=== PATIENT | male | born 1945 | race Caucasian/White ===

== ENCOUNTER 2019-01-07 14:41 | Inpatient (IN) | payer OTHER, MEDICARE ==
[~2019-01-07] VITALS: Ht 182.9 cm; Wt 104.3 kg
[2019-01-07] MEDS ORDERED: methylPREDNISolone SOD SUCC 125 MG/2 ML VL IV ONE (15:15)
[2019-01-07] MEDS ORDERED: diphenhdrAMINE HCL 50 MG/1 ML VL IV ONE (15:15)
[2019-01-07 16:04] LABS: Hematocrit 44.6 % (41.0-53.0); Hemoglobin 14.5 g/dL (13.5-17.5); Mean Corpuscular Hemoglobin 27.6 pg (28.0-32.0); Mean Corpuscular Hgb Conc. 32.4 g/dL (32.0-36.0); Platelet Count (auto) 108 10^3/uL (140-450); Red Blood Cells 5.25 10^6/uL (4.5-5.90); Red Cell Distribution Width 16.3 % (11.8-14.3); White Blood Cell 12.8 10^3/uL (4.4-10.8)
[2019-01-07 16:14] LABS: Band Neutrophils % (manual) 0; Basophils % (manual) 0 (0.0-2.0); Blast Cells 0; Eosinophils % (manual) 0 (0-7); Metamyelocytes % 0; Myelocytes % 0; Promyelocytes % 0; Reactive Lymphocytes 0
[2019-01-07 16:21] LABS: Albumin 3.9 g/dL (3.4-5.0); BUN/Creatinine Ratio 22.1; Calcium 9.4 mg/dL (8.5-10.1)
[2019-01-07 16:26] LABS: Bilirubin, Total 0.6 mg/dL (0.2-1.0); Total Protein 7.7 g/dL (6.4-8.2)
[2019-01-07 16:57] LABS: Lymphocytes % (manual) 4 (10.0-50.0); Monocytes % (manual) 6 (0-12)
[2019-01-07] MEDS ORDERED: MORPHINE SULF INJ 2 MG/ML SYRINGE 1ML IV PRN (19:00)
[2019-01-07] MEDS ORDERED: LACTULOSE 20Gm/30ML SOLN PO PRN (19:00)
[2019-01-07] MEDS ORDERED: ALBUTEROL SULF 2.5 MG/0.5ML(0.5%) NEB SOLN NEB PRN (19:00)
[2019-01-07] MEDS ORDERED: PROMETHAZINE HCL 25 MG/ML 1ML IV PRN (19:00)
[2019-01-07] MEDS ORDERED: NITROGLYCERIN 0.4 MG SL TAB SL PRN (19:00)
[2019-01-07] MEDS ORDERED: TEMAZEPAM 15 MG CAP PO PRN (19:00)
[2019-01-07] MEDS ORDERED: traMADol HCL 50 MG TAB PO PRN (19:00)
--- NOTE | 2019-01-07 20:20 | NUR ---
Telemetry admit from ER NIKKI MARKS admitted to Telemetry unit after SBAR received. Patient oriented to Amos Vera, primary RN, unit, room, bed, and unit policies regarding patient care and visiting hours. Patient now on continuous telemetry monitoring, tele box #24 and telemetry reading on arrival to unit is SR 90s. Patient placed on bedside oxygen, weighed by bedscale and encouraged to call if they need something. All questions and concerns addressed, patient verbalized understanding.
[2019-01-07 20:22] VITALS: BP 149/90
[2019-01-07 20:30] VITALS: BP 149/98
[2019-01-07 21:12] VITALS: BP 149/98
[2019-01-07] MEDS ORDERED: CARVEDILOL 3.125 MG TAB PO SCH (22:00)
[2019-01-07] MEDS: SODIUM CHLOR 0.9% PF (SALINE LOCK) 10ML VIAL/SYR IV SCH (22:00)
--- NOTE | 2019-01-07 22:50 | NUR ---
[employer] EMPLOY[employer] AGENCY MANAGER CALLS Call from [facility] monitor worker due to multiple episodes of bradycardia (30s and 40s). The patient states that he feels tired. Denies any previous history of bradycardia. supervisor blood Salazar has been notified. supervisor blood Salazar will discuss with hospitalist.
--- NOTE | 2019-01-07 23:25 | NUR ---
TRANSFER According to rubber tire and tubes supervisor Salazar, the patient will be transferred to ICU. Order for transfer has been placed by domestic housekeeper. ICU charge nurse is aware.
--- NOTE | 2019-01-07 23:30 | NUR ---
open report received from GORDON claros. assumed care of male pt, room air 95%, respirations equal and unlabored. iv to L ac, NSL. vs wnl. pt denies pain or sob at this time. pt admitted to icu for episodes of bradycardia, pt connected to temporary pacemaker at this time. pt educated on use of call light, call light within reach, pt verbalized understanding. bed in lowest position, wheels locked, 2 side rails up, hob30*, pt in full view of rn station, will continue to care for and monitor.
[2019-01-07 23:40] VITALS: BP 144/86
--- NOTE | 2019-01-07 23:50 | NUR ---
TRANSFER TO ICU Patient has been transferred the ICU bed #110. Bedside report was given to Comfort LEYVA.
[2019-01-08] VITALS (52 sets, daily range): BP systolic 90–179; BP diastolic 31–118
--- NOTE | 2019-01-08 01:00 | NUR ---
questions pt had questions regarding primary md, and poc. all questions and concerns addressed.
[2019-01-08] MEDS ORDERED: DOPamine 1600MCG/ML D5W 250 ML IV SCH (01:10)
[2019-01-08] MEDS: ALBUTEROL SULF 2.5 MG/0.5ML(0.5%) NEB SOLN NEB SCH ×5 (01:18→23:53)
[2019-01-08] MEDS ORDERED: GABA-339 PO (01:20)
[2019-01-08] MEDS ORDERED: NAPR500T31 PO (01:20)
[2019-01-08] MEDS ORDERED: FURO40TA4 PO (01:20)
[2019-01-08] MEDS ORDERED: TACR1CAP19 OR (01:20)
[2019-01-08] MEDS ORDERED: ENAL10TA PO (01:20)
[2019-01-08] MEDS ORDERED: ATOR40TA52 PO (01:20)
--- NOTE | 2019-01-08 01:30 | NUR ---
PAGED PAGEKianna AWAITING CALL BACK
--- NOTE | 2019-01-08 04:31 | NUR ---
hygiene pt refused hygeine at this time. said later on maybe after breakfast. canisters and tubing changed.
[2019-01-08] MEDS: SODIUM CHLOR 0.9% PF (SALINE LOCK) 10ML VIAL/SYR IV SCH ×3 (06:00→21:54)
[2019-01-08 06:14] LABS: Basophils # (auto) 0 uL; Basophils % (auto) 0.3 % (0.0-2.0); Eosinophils # (auto) 0 uL; Eosinophils % (auto) 0.2 % (0.0-7.0); Hemoglobin 14.8 g/dL (13.5-17.5); Lymphocytes # (auto) 0.4 uL; Lymphocytes % (auto) 4.1 % (10.0-50.0); Mean Corpuscular Hemoglobin 28.3 pg (28.0-32.0); Monocytes # (auto) 0.2 uL; Monocytes % (auto) 1.9 % (0.0-12.0); Neutrophils # (auto) 10.1 uL; Neutrophils % (auto) 93.5 % (37.0-80.0); Nucleated Red Blood Cells % 0.1 %; Platelet Count (auto) 154 10^3/uL (140-450); Red Blood Cells 5.23 10^6/uL (4.5-5.90); Red Cell Distribution Width 16.7 % (11.8-14.3); White Blood Cell 10.8 10^3/uL (4.4-10.8)
[2019-01-08 06:33] LABS: Albumin 3.5 g/dL (3.4-5.0); Calcium 8.6 mg/dL (8.5-10.1); Potassium 4.9 mmol/L (3.5-5.1)
[2019-01-08 06:35] LABS: BUN/Creatinine Ratio 24.4; Bilirubin, Total 0.4 mg/dL (0.2-1.0); Total Protein 7.7 g/dL (6.4-8.2)
--- NOTE | 2019-01-08 07:15 | NUR ---
CALLED BACK MD CALLED BACK UPDATED ON PT. ORDERS RECEIVED.
--- NOTE | 2019-01-08 07:33 | NUR ---
Dr. Bourgeois at bedside.
--- NOTE | 2019-01-08 07:46 | NUR ---
Assumed care of patient. Patient is AAOX4. Vital signs stable. No s/s of distress noted. Patient attached to monitor, safety measures in place. Ptient advised of POC and to call for assistance PRN. Patient verbalized understanding. Bed in lowest locked position, call light within reach, side rails up X2. Safety maintained, balwinder continue to monitor for changes Q1hr and PRN.
[2019-01-08 08:27] LABS: Urine Bacteria NONE SEEN /hpf (None Seen); Urine Blood TRACE /uL (Negative); Urine Hyaline Cast MANY /lpf (0 - 2); Urine Mucus FEW (None Seen); Urine Specific Gravity 1.026 (1.001-1.035); Urine WBC 1 /hpf (0 - 3)
[2019-01-08] MEDS ORDERED: LIDOCAINE 2%HCL (LOCAL ANESTH.) INJ 20ML MDV ONE (08:43)
[2019-01-08] MEDS ORDERED: IODIXANOL 320MG/ML 100ML BTL IV ONE ×2 (08:44→09:02)
[2019-01-08] MEDS ORDERED: HEPARIN SODIUM (PORCINE) 5000 UNITS/ML 1ML VIAL ONE (08:46)
[2019-01-08] MEDS ORDERED: VERAPAMIL 2.5MG/ML INJ 2ML VIAL IV ONE (08:46)
--- NOTE | 2019-01-08 08:48 | NUR ---
Patient transported to cath. lab.
[2019-01-08] MEDS ORDERED: MIDAZOLAM HCL 1MG/1ML-2 ML VIAL ONE ×2 (09:01→09:34)
[2019-01-08] MEDS ORDERED: fentaNYL CITRATE 100 MCG/2 ML VL ONE (09:01)
[2019-01-08] MEDS ORDERED: ANGIOMAX 250 MG VIAL IV ONE (09:02)
[2019-01-08] MEDS ORDERED: SODIUM CHL 0.9% 0 ML ONE (09:02)
[2019-01-08] MEDS ORDERED: methylPREDNISolone SOD SUCC 40 MG/ML VL IV SCH (10:00)
[2019-01-08] MEDS ORDERED: SODIUM CHLORIDE 0.9% 1,000 ML IV ONE (10:31)
--- NOTE | 2019-01-08 11:09 | NUR ---
Dr. Raya at bedside.
--- NOTE | 2019-01-08 11:45 | NUR ---
inorganic chemical technician at bedside.
--- NOTE | 2019-01-08 11:47 | NUR ---
Patient ashley Turner [facility] [phone]. Addendum: 01/08/19 at 1149 by Josselyn Wright RN RN WRONG PATIENT
--- NOTE | 2019-01-08 11:51 | NUR ---
Patient updated via telephone, after password was verified.
[2019-01-08] MEDS ORDERED: TACROLIMUS 1 MG CAP PO ONE (12:15)
[2019-01-08] MEDS ORDERED: EVEROLIMUS 1 MG PO SCH (12:30)
[2019-01-08] MEDS: FUROSEMIDE 40 MG/4 ML VIAL IV SCH (12:40)
[2019-01-08] MEDS: PANTOPRAZOLE 40 MG TAB PO SCH (12:41)
[2019-01-08] MEDS: NITROGLYCERIN 0.2MG/HR TOPICAL PATCH TD SCH (12:41)
[2019-01-08] MEDS: ASPirin 81 mg TAB PO SCH (12:41)
[2019-01-08] MEDS: ENOXAPARIN SOD 40 MG/0.4 ML SYRINGE SC SCH (12:41)
[2019-01-08] MEDS: POTASSIUM CHL 20 Meq TABLET PO SCH (12:41)
--- NOTE | 2019-01-08 13:10 | NUR ---
Lunch tray provided.
--- NOTE | 2019-01-08 16:00 | NUR ---
BP 90/54, Nitro patch removed.
--- NOTE | 2019-01-08 16:14 | NUR ---
Dr. Bourgeois, updated via telephone. No new orders received.
--- NOTE | 2019-01-08 19:00 | NUR ---
OPENING NOTE ASSUMED CARE OF PATIENT AT THIS TIME. REPORT RECEIVED FROM DAY SHIFT RN. POC REVIEWED. HEAD TO TOE ASSESSMENT COMPLETE, SEE INTERVENTION SPREADSHEET FOR COMPLETE DETAILS. RECEIVED PT ALERT AND ORIENTED X4. PT AMBULATORY. PT DENIES PAIN AT THIS TIME. IV SITE BENIGN. BED LOCKED AND IN LOWEST POSITION, SAFETY PRECAUTIONS IN PLACE. CALL LIGHT WITHIN REACH. WILL MONITOR PT CAREFULLY.
--- NOTE | 2019-01-08 20:15 | NUR ---
PT OOB TO USE BEDSIDE COMMODE. PT BACK TO BED WITH NO INCIDENT.
[2019-01-08] MEDS: ACETAMINOPHEN 500 MG TAB PO PRN (21:32)
--- NOTE | 2019-01-08 21:33 | NUR ---
PT COMPLAINING OF HEADACHE. TYLENOL GIVEN ORDERED. WILL ASSESS FOR EFFECTIVENESS.
[2019-01-08] MEDS: GABAPENTIN 300 MG CAP PO SCH (21:51)
[2019-01-08] MEDS: ATORVASTATIN 20 MG TAB PO SCH (21:52)
[2019-01-08] MEDS: TACROLIMUS 1 MG CAP PO SCH (21:53)
[2019-01-08] MEDS: EVEROLIMUS 0.75 MG PO SCH (21:53)
[2019-01-08] MEDS: EVEROLIMUS 0.25 MG PO SCH (21:54)
[2019-01-08] MEDS: GUANFACINE 1 MG PO SCH (21:54)
[2019-01-08] MEDS ORDERED: ATORVASTATIN 20 MG TAB PO SCH (22:00)
[2019-01-09] VITALS (10 sets, daily range): BP systolic 105–165; BP diastolic 69–106
--- NOTE | 2019-01-09 04:59 | NUR ---
PT TRANSFERRED TO [facility] AT THIS TIME. REPORT GIVEN TO PARVEEN LEYVA. PT TRANSFERRED WITH ACLS DEFIBRILLATOR PER PROTOCOL.
--- NOTE | 2019-01-09 05:08 | NUR ---
RECEIVED PATIENT FROM ICU PATIENT ABLE TO AMBULATE TO TOILET WITH SB ASSIST, GAIT NOTED TO BE STABLE. PATIENT BACK TO BED WITHOUT INCIDENT. PHYSICAL ASSESSMENT DONE: PATIENT IS ALERT AND ORIENTED X4.RIGHT FA IV PATENT AND FLUSHING WITHOUT ANY ISSUES OR SWELLING.SKIN INTACT, WITH DRESSING TO RIGHT GROIN S/P HEART CATH CDI, NO S/S OF HEMATOMA OR ACTIVE BLEEDING.BILATERAL ANKLE SWELLING PITTING +1. LUNG SOUNDS CLEAR THROUGHOUT ON RA WITH O2 SAT 97%. PATIENT C/O LIU RATING IT 8/10. MEDICATED FOR PAIN AND WILL REASSESS FOR EFFECTIVENESS. CALL LIGHT GIVEN TO PATIENT TO CALL PRN. PATIENT STATES HE WOULD LIKE TO GO BACK TO SLEEP.CONTINUE POC.
[2019-01-09] MEDS: SODIUM CHLOR 0.9% PF (SALINE LOCK) 10ML VIAL/SYR IV SCH ×3 (06:02→22:09)
[2019-01-09] MEDS: ALBUTEROL SULF 2.5 MG/0.5ML(0.5%) NEB SOLN NEB SCH ×3 (06:36→18:44)
--- NOTE | 2019-01-09 08:15 | NUR ---
Opening Shift Note Assumed care of patient, awake and alert. No S/S of distress/SOB or pain. Instructed on POC and to call for assist PRN, will continue to monitor for changes Q1hr and PRN.
[2019-01-09 08:29] LABS: Basophils # (auto) 0 uL; Basophils % (auto) 0.2 % (0.0-2.0); Eosinophils # (auto) 0 uL; Eosinophils % (auto) 0.2 % (0.0-7.0); Hematocrit 43.5 % (41.0-53.0); Hemoglobin 14.3 g/dL (13.5-17.5); Lymphocytes # (auto) 0.6 uL; Lymphocytes % (auto) 8.4 % (10.0-50.0); Mean Corpuscular Hemoglobin 28.1 pg (28.0-32.0); Mean Corpuscular Hgb Conc. 32.8 g/dL (32.0-36.0); Mean Corpuscular Volume 85.8 fL (80.0-100.0); Monocytes # (auto) 0.6 uL; Monocytes % (auto) 9.5 % (0.0-12.0); Neutrophils # (auto) 5.3 uL; Neutrophils % (auto) 81.7 % (37.0-80.0); Platelet Count (auto) 110 10^3/uL (140-450); Red Blood Cells 5.08 10^6/uL (4.5-5.90); Red Cell Distribution Width 16.9 % (11.8-14.3); White Blood Cell 6.5 10^3/uL (4.4-10.8)
[2019-01-09 08:43] LABS: Calcium 8.5 mg/dL (8.5-10.1); Potassium 3.8 mmol/L (3.5-5.1)
[2019-01-09] MEDS: ACETAMINOPHEN 500 MG TAB PO PRN (08:51)
[2019-01-09] MEDS: NITROGLYCERIN 0.2MG/HR TOPICAL PATCH TD SCH (08:52)
--- NOTE | 2019-01-09 09:15 | NUR ---
Suraj sitting on the bed, had breakfast around 100%, no N/V noted.
[2019-01-09] MEDS: TACROLIMUS 1 MG CAP PO SCH ×2 (09:25→22:10)
[2019-01-09] MEDS: EVEROLIMUS 0.75 MG PO SCH ×2 (09:26→22:09)
[2019-01-09] MEDS: POTASSIUM CHL 20 Meq TABLET PO SCH (09:27)
[2019-01-09] MEDS: EVEROLIMUS 0.25 MG PO SCH ×2 (09:27→22:09)
[2019-01-09] MEDS: CYANOCOBALAMIN 500 MCG TAB PO SCH (09:28)
[2019-01-09] MEDS: CHOLECALCIFEROL (VITD3) 1,000 UNIT TAB PO SCH (09:28)
[2019-01-09] MEDS: FUROSEMIDE 40 MG/4 ML VIAL IV SCH (09:29)
[2019-01-09] MEDS: GABAPENTIN 300 MG CAP PO SCH ×2 (09:29→22:10)
[2019-01-09] MEDS: ASPirin 81 mg TAB PO SCH (09:29)
[2019-01-09] MEDS: PANTOPRAZOLE 40 MG TAB PO SCH (09:29)
[2019-01-09] MEDS: ENOXAPARIN SOD 40 MG/0.4 ML SYRINGE SC SCH (09:30)
--- NOTE | 2019-01-09 10:35 | NUR ---
Dr. Raya at the bedside, seen and examined patient this morning, plan to keep patient in [facility],continue to monitor EKG, plan to have pace maker insertion by Dr. Bourgeois recommendation, patient made aware.
--- NOTE | 2019-01-09 12:30 | NUR ---
Lunch tray provided.
--- NOTE | 2019-01-09 13:00 | NUR ---
Patient had Lunch around 100%, no complaining of N/V noted.
--- NOTE | 2019-01-09 14:00 | NUR ---
His at the bedside, patient sitting on the bed, vital sign stable , HR 80-85/min, SBP 120-140 mmHg, no complaining of chest pain noted, talking to his at this time.
--- NOTE | 2019-01-09 17:00 | NUR ---
Patient sitting at the edge of the bed, watching Foot ball game, no complaining of chest pain or dizziness noted.
--- NOTE | 2019-01-09 18:30 | NUR ---
Patient sitting on the bed, having Dinner.
--- NOTE | 2019-01-09 20:00 | NUR ---
SHIFT OPENING NOTE RECEIVED PATIENT AWAKE, ALERT AND ORIENTED X4. NO SOB, DISTRESS OR PAIN NOTED. ON ROOM AIR. PHYSICAL ASSESSMENT COMPLETED, SEE INTERVENTIONS. INSTRUCTED ON POC AND TO CALL FOR ASSIST NEEDED. BED IS IN THE LOWEST POSITION WITH SIDE RAILS UP X2, URINAL AT BEDSIDE. CALL LIGHT WITHIN REACH.
[2019-01-09] MEDS: GUANFACINE 1 MG PO SCH (22:09)
[2019-01-09] MEDS: ATORVASTATIN 20 MG TAB PO SCH (22:10)
[2019-01-10] VITALS (8 sets, daily range): BP systolic 127–158; BP diastolic 66–104
[2019-01-10] MEDS: ALBUTEROL SULF 2.5 MG/0.5ML(0.5%) NEB SOLN NEB SCH ×4 (00:20→18:57)
--- NOTE | 2019-01-10 00:30 | NUR ---
ROUNDS PATIENT IS LAYING IN BED SLEEPING. NO SOB, DISTRESS OR PAIN NOTED. VS STABLE. WILL CONTINUE TO CLOSELY MONITOR.
[2019-01-10] MEDS: SODIUM CHLOR 0.9% PF (SALINE LOCK) 10ML VIAL/SYR IV SCH ×3 (05:19→22:55)
--- NOTE | 2019-01-10 06:00 | NUR ---
MORNING HYGIENE CARE PATIENT INDEPENDENTLY DID ORAL CARE AND CHG BATH. NEW GOWN PLACED. PARTIAL LINEN CHANGED.
--- NOTE | 2019-01-10 07:00 | NUR ---
END OF SHIFT REPORT GIVEN AND CARE ENDORSED TO ANNY RN. PATIENT IS LAYING IN BED AWAKE. NO SOB, DISTRESS OR PAIN NOTED. VS STABLE.
--- NOTE | 2019-01-10 07:40 | NUR ---
Opening Shift Note Assumed care of patient, awake and alert. No S/S of distress/SOB or chest pain noted. Instructed on POC and to call for assist PRN, will continue to monitor for changes Q1hr and PRN.
--- NOTE | 2019-01-10 08:50 | NUR ---
Patient sitting on the bed, had breakfast 100%, no complaining of N/V noted.
--- NOTE | 2019-01-10 09:30 | NUR ---
Dr. Raya at the bedside, seen and examined patient this morning, MD made aware about patient concerning. Dr. Raya talked to Dr. Bourgeois on the phone, Dr. Bourgeois made aware and will call and talk to doctor who patient follow up about heart transplant with tomorrow. Plan to NPO tomorrow morning until Dr. Bourgeois comes ans talks to patient, patient made aware.
[2019-01-10] MEDS: POTASSIUM CHL 20 Meq TABLET PO SCH (09:43)
[2019-01-10] MEDS: EVEROLIMUS 0.75 MG PO SCH ×2 (09:43→22:34)
[2019-01-10] MEDS: EVEROLIMUS 0.25 MG PO SCH ×2 (09:45→22:33)
[2019-01-10] MEDS: TACROLIMUS 1 MG CAP PO SCH ×2 (09:45→22:34)
[2019-01-10] MEDS: NITROGLYCERIN 0.2MG/HR TOPICAL PATCH TD SCH (09:46)
[2019-01-10] MEDS: FUROSEMIDE 40 MG/4 ML VIAL IV SCH (09:46)
[2019-01-10] MEDS: GABAPENTIN 300 MG CAP PO SCH ×2 (09:47→22:31)
[2019-01-10] MEDS: PANTOPRAZOLE 40 MG TAB PO SCH (09:47)
[2019-01-10] MEDS: ASPirin 81 mg TAB PO SCH (09:47)
[2019-01-10] MEDS: CHOLECALCIFEROL (VITD3) 1,000 UNIT TAB PO SCH (09:48)
[2019-01-10] MEDS: CYANOCOBALAMIN 500 MCG TAB PO SCH (09:48)
[2019-01-10] MEDS: ENOXAPARIN SOD 40 MG/0.4 ML SYRINGE SC SCH (09:49)
[2019-01-10] MEDS ORDERED: BISACODYL 5 MG EC TAB PO ONE (10:30)
--- NOTE | 2019-01-10 11:10 | NUR ---
Patient sitting on the chair, watching TV, no complaining of chest pain noted, no arrhythmia noted, SBP 120-140 mmHg, Will continue to monitor and care.
--- NOTE | 2019-01-10 12:30 | NUR ---
Patient's visit, Lunch tray provided.
--- NOTE | 2019-01-10 16:10 | NUR ---
Patient went back to the bed, taking a nap at this time. Vital sign stable, still has sinus pause a couple of time at 15.10 pm and 16.10 pm, no complaining of dizziness or chest pain noted,will continue to monitor and care.
[2019-01-10 17:37] LABS: INR 1.01 (0.9-1.15); Partial Thromboplastin Time 25.1 sec (23.64-32.05)
--- NOTE | 2019-01-10 18:30 | NUR ---
Patient sitting at the edge of the bed for having Dinner, EKG no new pause after 16.07 pm, vital sign stable, no complaining of chest pain noted.
--- NOTE | 2019-01-10 19:30 | NUR ---
Opening Shift Note Assumed care of patient, awake and alert. Breathing on RA, No S/S of distress/SOB. Denied pain. 20G saline lock at right FA, flushed well, CDI site. Due to void. Bed in low position, call light within reach, all alarms are audible, fall and safety precaution in place. Instructed on POC and possible procedure tomorrow and to call for assist PRN, will continue to monitor for changes Q1hr and PRN.
--- NOTE | 2019-01-10 22:00 | NUR ---
Condition update V/S and condition stable, no HR paused noted. Awake and able to dangle at bedside by self. Asked for a sandwich before NPO at midnight. Provided as requested, Pt tolerated crackers and sandwich well, independently eating. Continue care.
[2019-01-10] MEDS: ATORVASTATIN 20 MG TAB PO SCH (22:31)
[2019-01-10] MEDS: GUANFACINE 1 MG PO SCH (22:36)
[2019-01-11] VITALS: BP 126/84
--- NOTE | 2019-01-11 00:05 | NUR ---
Condition update Pt stood at bedside for urination, stable gait, provided privacy. V/S and condition stable. NPO. Continue care.
--- NOTE | 2019-01-11 01:05 | NUR ---
Elimination Pt woke up, urinated clear yellow urine to urinal then requested to go to the toilet for BM. Assisted PT disconnected equipment, Pt walked to the restroom with stable gait. Continue care.
[2019-01-11] MEDS: ALBUTEROL SULF 2.5 MG/0.5ML(0.5%) NEB SOLN NEB SCH ×3 (01:23→12:14)
--- NOTE | 2019-01-11 02:40 | NUR ---
Desaturation Pt sleeping, O2sat fluctuating from 78-96% while sleeping, no s/s of distress. Woke Pt up, explained the event, put Pt on O2NC 2 LPM, will continue to monitor while Pt fell asleep again. Pt acknowledged and verbalized understanding. Continue care.
--- NOTE | 2019-01-11 03:40 | NUR ---
Condition update Pt v/s and condition stable. No EKG pause noted. Pt stated that he wanted to go back to sleep now and he wanted to do AM care at 6 o'clock. Continue care.
[2019-01-11 04:00] VITALS: BP 125/83
[2019-01-11] MEDS: ACETAMINOPHEN 500 MG TAB PO PRN ×2 (04:24→16:20)
--- NOTE | 2019-01-11 04:25 | NUR ---
Headache Pt woke up and c/o headache at the forehead 01/09. Tylenol given with 30ml of water. Pt stated that the flow of the O2 made him has a headache, and refused to put the O2 back on. Pt went back to sleep, room air, will continue to monitor.
--- NOTE | 2019-01-11 06:05 | NUR ---
Patient bathe/linen change Patient given complete bath with CHG wipes for possible PPM. Skin integrity assessed for any changes, no new changes. Complete linens changed. Pt tolerated well.
[2019-01-11 07:45] VITALS: BP 140/92
--- NOTE | 2019-01-11 07:45 | NUR ---
Dr. Bourgeois at bedside.
[2019-01-11] MEDS: SODIUM CHLOR 0.9% PF (SALINE LOCK) 10ML VIAL/SYR IV SCH ×2 (08:00→14:00)
--- NOTE | 2019-01-11 08:00 | NUR ---
Opening Shift Note Assumed care of patient, awake and alert. Patient A&Ox4. Patient on the monitor on room air. IV right forearm 20G saline locked, patent, clean, dry, and intact. No S/S of distress/SOB or pain. Instructed on POC and to call for assist PRN. Bed locked and in the lowest position, side rails up x2, call light with in reach. Will continue to monitor.
[2019-01-11] MEDS ORDERED: LIDOCAINE 2%HCL (LOCAL ANESTH.) INJ 20ML MDV ONE (09:11)
--- NOTE | 2019-01-11 09:15 | NUR ---
Patient taken down to powerhouse laborer.
[2019-01-11] MEDS ORDERED: MIDAZOLAM HCL 1MG/1ML-2 ML VIAL ONE (09:18)
[2019-01-11] MEDS ORDERED: fentaNYL CITRATE 100 MCG/2 ML VL ONE (09:18)
[2019-01-11] MEDS ORDERED: IODIXANOL 320MG/ML 100ML BTL IV ONE (09:24)
[2019-01-11] MEDS: ENOXAPARIN SOD 40 MG/0.4 ML SYRINGE SC SCH (10:00)
[2019-01-11] MEDS ORDERED: hydrALAZINE HCL 20 MG/ML VL ONE (10:17)
[2019-01-11] MEDS: FUROSEMIDE 40 MG/4 ML VIAL IV SCH (11:12)
[2019-01-11] MEDS: GABAPENTIN 300 MG CAP PO SCH (11:12)
[2019-01-11] MEDS: POTASSIUM CHL 20 Meq TABLET PO SCH (11:12)
[2019-01-11] MEDS: CHOLECALCIFEROL (VITD3) 1,000 UNIT TAB PO SCH (11:12)
[2019-01-11] MEDS: ASPirin 81 mg TAB PO SCH (11:13)
[2019-01-11] MEDS: PANTOPRAZOLE 40 MG TAB PO SCH (11:13)
[2019-01-11] MEDS: NITROGLYCERIN 0.2MG/HR TOPICAL PATCH TD SCH (11:14)
[2019-01-11] MEDS: TACROLIMUS 1 MG CAP PO SCH (11:14)
[2019-01-11] MEDS: CYANOCOBALAMIN 500 MCG TAB PO SCH (11:20)
[2019-01-11] MEDS: EVEROLIMUS 0.25 MG PO SCH (11:21)
[2019-01-11] MEDS: EVEROLIMUS 0.75 MG PO SCH (11:21)
--- NOTE | 2019-01-11 11:30 | NUR ---
Patient back from drop crew laborer. Right groin site clean, dry, and intact. Patient will lie flat until approximately 1245. Patient resting at this time. No S/S of pain/SOB or distress. Dr. Raya at bedside. OK to Discharge after 1600 today. Will continue to monitor.
[2019-01-11 11:40] VITALS: BP 134/76
--- NOTE | 2019-01-11 11:45 | NUR ---
Medication dosages, usages, and side effects explained to patient. Patient verbalized understanding. Will continue to monitor.
--- NOTE | 2019-01-11 12:45 | NUR ---
Patient sitting up in bed now. No S/S of bleeding from right groin. Dressing clean, dry, and intact. Will continue to monitor.
--- NOTE | 2019-01-11 13:00 | NUR ---
Patient sitting up on side of bed eating Lunch independently. Will continue to monitor.
--- NOTE | 2019-01-11 13:45 | NUR ---
Still no bleeding from right groin, dressing is clean, dry, and intact. Patient resting at this time. Will continue to monitor.
--- NOTE | 2019-01-11 15:00 | NUR ---
Patient resting at this time. Will continue to monitor. No bleeding from right groin site, clean, dry, and intact.
[2019-01-11 15:45] VITALS: BP 99/68
--- NOTE | 2019-01-11 16:20 | NUR ---
1300hrs called Kinza Mcclain at ph # [phone] and had to leave message to see what HH agencies Kinza is contracted with. I have not heard back from Sarahi so I proceeded to call HH agencies. I called [facility], [facility], [facility], visiting [facility], and all do not take [employer], I called [facility] and the do take [employer] but they are full quota for private insurance at this time. I called [facility] and spoke to Snow and informed her that pt may not get HH due to his private insurance. I informed Rolanda Artis of HH agencies I called and to cont to work on HH . Informed Chela it is okay for pt to go home from HH perspective
--- NOTE | 2019-01-11 16:30 | NUR ---
Patient discharged. IV right forearm removed, catheter intact and pressure dressing placed. No new prescriptions upon discharge. Patient to have lab work done in 1-[address] weeks[address] made for [address] Bourgeois January 20 at 0820. VS WNL upon discharge. All belongings taken with patient. Patient given all discharge instructions, at bedside, both verbalized understanding. Patient taken out by wheel chair by Boaz OGDEN. No S/S of pain/SOB or distress upon discharge.
--- NOTE | 2019-01-12 14:40 | NUR ---
Called ELSY Blanc from [facility] to let her know that the previous HH agencies, [facility] are renewing contracts with [facility] and [facility] does not have a contract. I informed Guanaco I would need her to find a HH agency for her member in this geographical area. I had to leave her a message
== END 2019-01-11 16:40 | disposition home health service (06) | DRG 280 ==
LOC: ER 14:41 → EDBD 14:41 → TELE-WESTW 14:42 → ICU WEST 23:47 → DOU IN ICU 01-09 04:52
PROVIDERS: ADMIT Internal Medicine; ATTEND Internal Medicine
PROC: 4A023N7 Measurement of Cardiac Sampling and Pressure, Left Heart, Percutaneous Approach (ICD-10-PCS; principal; 2019-01-08)
PROC: B2111ZZ Fluoroscopy of Multiple Coronary Arteries using Low Osmolar Contrast (ICD-10-PCS; 2019-01-08)
PROC: B2131ZZ Fluoroscopy of Multiple Coronary Artery Bypass Grafts using Low Osmolar Contrast (ICD-10-PCS; 2019-01-08)
PROC: B41F1ZZ Fluoroscopy of Right Lower Extremity Arteries using Low Osmolar Contrast (ICD-10-PCS; 2019-01-08)
DX: I21.4 Non-ST elevation (NSTEMI) myocardial infarction (principal); N17.0 Acute kidney failure with tubular necrosis; Z94.1 Heart transplant status; E87.1 Hypo-osmolality and hyponatremia; I13.0 Hypertensive heart and chronic kidney disease with heart failure and stage 1 through stage 4 chronic kidney disease, or unspecified chronic kidney disease; T63.441A Toxic effect of venom of bees, accidental (unintentional), initial encounter; G62.9 Polyneuropathy, unspecified; E66.9 Obesity, unspecified; D72.829 Elevated white blood cell count, unspecified; D69.6 Thrombocytopenia, unspecified; I27.20 Pulmonary hypertension, unspecified; I35.8 Other nonrheumatic aortic valve disorders; R00.1 Bradycardia, unspecified; K59.00 Constipation, unspecified; N18.9 Chronic kidney disease, unspecified; Z95.1 Presence of aortocoronary bypass graft; Y92.89 Other specified places as the place of occurrence of the external cause; Z68.31 Body mass index [BMI] 31.0-31.9, adult; Z86.73 Personal history of transient ischemic attack (TIA), and cerebral infarction without residual deficits; Z79.899 Other long term (current) drug therapy
CPT/HCPCS: 36415; 71045; 75710; 80048; 80053; 81001; 82550; 83880; 84484; 85007; 85025; 85027; 85610; 85730; 87081; 93005; 93306; 93459; 94640; 96367; 96374; 96375; 99152; 99153; G0378; J2250; J7507; Q9967

== ENCOUNTER 2019-08-05 09:37 | Inpatient (IN) | payer OTHER, MEDICARE ==
[~2019-08-05] VITALS: Ht 177.8 cm; Wt 108.1 kg
[~2019-08-05 09:37] MED LIST: ATOR40TA52 PO; ENAL10TA PO; FURO40TA4 PO; GABA-339 PO; NAPR500T31 PO; TACR1CAP19 OR
[2019-08-05] MEDS ORDERED: SODIUM CHLORIDE 0.9% 1,000 ML IV ONE (10:11)
[2019-08-05 10:46] LABS: Basophils # (auto) 0.1 10 ^3/uL (0-0.2); Basophils % (auto) 0.6 % (0.0-2.0); Eosinophils # (auto) 0.1 10 ^3/uL (0-0.8); Eosinophils % (auto) 0.8 % (0.0-7.0); Hematocrit 41.7 % (41.0-53.0); Hemoglobin 13.6 g/dL (13.5-17.5); Lymphocytes # (auto) 0.7 10 ^3/uL (0.4-5.4); Lymphocytes % (auto) 7.8 % (10.0-50.0); Mean Corpuscular Hgb Conc. 32.6 g/dL (32.0-36.0); Mean Corpuscular Volume 82.7 fL (80.0-100.0); Monocytes # (auto) 0.8 10 ^3/uL (0-1.3); Monocytes % (auto) 8.5 % (0.0-12.0); Neutrophils # (auto) 7.6 10 ^3/uL (1.6-8.6); Neutrophils % (auto) 82.3 % (37.0-80.0); Platelet Count (auto) 173 10^3/uL (140-450); Red Blood Cells 5.04 10^6/uL (4.5-5.90); Red Cell Distribution Width 17.3 % (11.8-14.3); White Blood Cell 9.2 10^3/uL (4.4-10.8)
[2019-08-05 11:00] LABS: Albumin 2.9 g/dL (3.4-5.0); Anion Gap 7 (5-15); Blood Urea Nitrogen 39 mg/dL (7-18); Calcium 8.8 mg/dL (8.5-10.1); Carbon Dioxide 24 mmol/L (21-32); Chloride 112 mmol/L (98-107); Glucose 164 mg/dL (74-106); Potassium 4.2 mmol/L (3.5-5.1); Sodium 143 mmol/L (136-145)
[2019-08-05 11:06] LABS: Alanine Aminotransferase 20 U/L (16-61); Alkaline Phosphatase 125 U/L (45-117); Aspartate Aminotransferase 15 U/L (15-37); BUN/Creatinine Ratio 20.2; Bilirubin, Total 0.7 mg/dL (0.2-1.0); GFR African American 44 mL/min; GFR Non-African American 36 mL/min; Total Protein 6.9 g/dL (6.4-8.2)
[2019-08-05 13:24] LABS: Urine Bacteria NONE SEEN /hpf (None Seen); Urine Blood Negative /uL (Negative); Urine Hyaline Cast FEW /lpf (0 - 2); Urine Specific Gravity 1.026 (1.001-1.035); Urine WBC 2 /hpf (0 - 3)
[2019-08-05] MEDS ORDERED: FUROSEMIDE 20 MG/2 ML VIAL IV ONE (13:45)
[2019-08-05] MEDS ORDERED: MORPHINE SULF INJ 2 MG/ML SYRINGE 1ML IV PRN (14:15)
[2019-08-05] MEDS ORDERED: ONDANSETRON HCL 4 MG/2 ML VIAL IV PRN (14:15)
[2019-08-05] MEDS ORDERED: NITROGLYCERIN 0.4 MG SL TAB SL PRN (14:15)
--- NOTE | 2019-08-05 15:10 | NUR ---
PATIENT ARRIVE FROM ER VIA WHEEL CHAIR ACCOMPANIED WITH ISAAC RN AND GLADYS RN TO ROOM 247A, PT WAS ABLE TO STAND UP AND TAKE A FEW STEPS TO GET INSIDE HIS BED, BOTH LEGS +2 TO 3 EDEMA FROM FEET TO THE HIP AREA, LARGE FIRM ABDOMEN NOTED, PT IS STATUS POST SKIN GRAFT ON UPPER THIGH, COVERED WITH MEDICATED GAUZE PER PT STATED DOCTOR WANT IT OPEN TO AIR TILL FALL OFF, I HAVE IT 2 WEEKS AGO, SKIN TRANSPLANT ON LEFT TEMPORAL AREA, SKIN EDGES WITH DRY BLOOD AND SMALL SCABS NOTED, PT IS ABLE TO SELF REPOSITION FROM SIDE TO SIDE, ROOM ORIENTATION GIVEN TO PT, FALL RISK INITIATED, BED ALARM ACTIVATED, CALL LIGHT WITHIN REACH
[2019-08-05 15:15] VITALS: BP 126/74
--- NOTE | 2019-08-05 16:00 | NUR ---
ADMISSION PHOTO TAKEN TO LEFT UPPER THIGH AND LEFT TEMPORAL
[2019-08-05 16:23] VITALS: BP 126/74
--- NOTE | 2019-08-05 16:46 | NUR ---
DR DEJESUS GI IS HERE FOLLOWING UP ON PT, EXPLAIN TO PT THE COLONOSCOPY AND POTENTIAL COMPLICATION, PT VERBALIS UNDERSTANDING
[2019-08-05] MEDS ORDERED: GOLYTELY 4L KIT PO ONE ×2 (17:15)
--- NOTE | 2019-08-05 17:35 | NUR ---
GOLYTELY EDUCATED PT TO DRINK GOLYTELY, BED SIDE COMMODE AND TOILET PAPERS PROVIDED, PT VERBALIS UNDERSTANDING
--- NOTE | 2019-08-05 18:27 | NUR ---
PT TOLERATING GOLYTELY WELL, NO BM YET, CONTINUE MONITORING
[2019-08-05 19:48] LABS: INR 1.07 (0.9-1.15)
--- NOTE | 2019-08-05 19:50 | NUR ---
RECEIVED PATIENT FROM DAY SHIFT RN. PATIENT RESTING IN BED. NO S/S OF DISTRESS NOTED. DENIED PAIN FOR NOW. SKIN GRAFT NOTED ON LEFT UPPER THIGH AND 2 PATCHES ON LEFT AND TOP OF HIS HEAD. OPEN TO AIR. NO S/S OF INFECTION NOTED. PATIENT DRINKING GOLYTELY FOR TOMORROW PROCEDURE. REINFORCED NPO AFTER MIDNIGHT. PATIENT VERBALIZED UNDERSTANDING, POC INSTRUCTED AND ENCOURAGED PATIENT TO CALL FOR MACHINE SKIVER IF NEEDED. BED IN LOWEST POSITION WITH SIDE RAILS UP X 2. CALL BLACKBURN WITHIN REACH. ALARM ON. CONTINUE TO MONITOR FOR CHANGES Q1H AND PRN.
[2019-08-05] MEDS: GABAPENTIN 300 MG CAP PO SCH (21:57)
[2019-08-05] MEDS: ATORVASTATIN 20 MG TAB PO SCH (21:58)
[2019-08-05] MEDS: TACROLIMUS 1 MG CAP PO SCH (21:58)
[2019-08-05] MEDS: metroNIDAZOLE 500MG/100ML 100 ML IV SCH (22:46)
[2019-08-06] VITALS (7 sets, daily range): BP systolic 114–156; BP diastolic 75–106
--- NOTE | 2019-08-06 00:05 | NUR ---
WATER REMOVED FROM BEDSIDE. NPO FROM NOW ON. CONTINUE TO MONITOR.
--- NOTE | 2019-08-06 03:42 | NUR ---
REPORT GIVEN TO FREEDOM LEYVA.
--- NOTE | 2019-08-06 03:45 | NUR ---
Assumed care of patient after report received from Maida LEYVA. Patient is resting in bed and has no S/S of distress/SOB or pain.
[2019-08-06] MEDS ORDERED: GOLYTELY 4L KIT PO ONE (06:00)
[2019-08-06] MEDS: metroNIDAZOLE 500MG/100ML 100 ML IV SCH ×2 (06:06→15:48)
--- NOTE | 2019-08-06 06:07 | NUR ---
Patient had moderate sized light gibbs runny BM.
[2019-08-06 06:50] LABS: Basophils # (auto) 0 10 ^3/uL (0-0.2); Basophils % (auto) 0.5 % (0.0-2.0); Eosinophils # (auto) 0.1 10 ^3/uL (0-0.8); Eosinophils % (auto) 2.1 % (0.0-7.0); Hematocrit 39.1 % (41.0-53.0); Hemoglobin 12.9 g/dL (13.5-17.5); Lymphocytes # (auto) 0.9 10 ^3/uL (0.4-5.4); Mean Corpuscular Hemoglobin 27.2 pg (28.0-32.0); Mean Corpuscular Volume 82.5 fL (80.0-100.0); Monocytes # (auto) 0.8 10 ^3/uL (0-1.3); Monocytes % (auto) 12.1 % (0.0-12.0); Neutrophils # (auto) 4.7 10 ^3/uL (1.6-8.6); Neutrophils % (auto) 71.3 % (37.0-80.0); Nucleated Red Blood Cells % 0.1 %; Platelet Count (auto) 141 10^3/uL (140-450); Red Blood Cells 4.74 10^6/uL (4.5-5.90); Red Cell Distribution Width 17.3 % (11.8-14.3); White Blood Cell 6.6 10^3/uL (4.4-10.8)
--- NOTE | 2019-08-06 07:00 | NUR ---
CLOSING NOTE Patient is on room air. Respirations even and unlabored. Patient has no S/S of distress/SOB or pain.
[2019-08-06 07:19] LABS: Albumin 3.1 g/dL (3.4-5.0); BUN/Creatinine Ratio 21.3; Bilirubin, Total 0.8 mg/dL (0.2-1.0); Calcium 8.9 mg/dL (8.5-10.1); Potassium 4.1 mmol/L (3.5-5.1); Total Protein 6.9 g/dL (6.4-8.2)
--- NOTE | 2019-08-06 08:00 | NUR ---
ASSESSMENT NOTE PT IS RESTING IN BED COMFORTABLY, NO DISTRESS NOTED, DONE WITH ALL GOLYTELY EARLIER, 2 TO 3 + EDEMA CONTINUE NOTED ON BOTH ANKLES ALONG WITH BOTH LEGS, SELF REPOSITION NEEDED, PAIN 0/10, NO BLOOD NOTED IN URINE, NPO, CONTINUE MONITORING
[2019-08-06] MEDS ORDERED: LIDOCAINE VISCOUS 2% 15ML UD ONE (08:32)
[2019-08-06] MEDS ORDERED: SODIUM CHLORIDE LOCK 10 ML ONE (08:32)
[2019-08-06] MEDS ORDERED: diphenhdrAMINE HCL 50 MG/1 ML VL ONE (08:33)
[2019-08-06] MEDS: PANTOPRAZOLE 40 MG/10 ML VIAL INJ IV SCH (08:58)
[2019-08-06] MEDS: levoFLOXacin 250MG 50 ML IV SCH (08:58)
[2019-08-06] MEDS: ENALAPRIL MALEATE 10 MG TAB PO SCH (08:59)
[2019-08-06] MEDS: FUROSEMIDE 40 MG TAB PO SCH (08:59)
--- NOTE | 2019-08-06 09:00 | NUR ---
DR VICTOR AT BED SIDE FOLLOWING UP ON PT WITH NEW ORDERS
[2019-08-06] MEDS: TACROLIMUS 1 MG CAP PO SCH (09:11)
--- NOTE | 2019-08-06 09:15 | NUR ---
DR FALL AT BED SIDE FOLLOWING UP ON PT
[2019-08-06] MEDS: GABAPENTIN 300 MG CAP PO SCH (10:00)
[2019-08-06] MEDS: ATORVASTATIN 20 MG TAB PO SCH (10:00)
--- NOTE | 2019-08-06 12:35 | NUR ---
UROLOGY CONSULT MOOKIE SAENZ AT BED SIDE FOLLOWING UP ON PT, VERIFY WITH PT TH EURINE COLOR, PT STATED DARK, CONFIRM WITH PT THE CRYO ABLATION TO THE RIGHT KIDNEY ON AUGUST 23, PT VERBALIS UNDERSTANDING
--- NOTE | 2019-08-06 12:56 | NUR ---
TRANSFER PT VIA HOSPITAL BED TO PRE OP, REPORT GIVEN TO ZUHAIR RN, DR DEJESUS AT BED SIDE
[2019-08-06] MEDS: fentaNYL CITRATE 100 MCG/2 ML VL ONE ×2 (13:47→13:51)
[2019-08-06] MEDS: MIDAZOLAM HCL 5 MG/ML-1ML VIAL ONE ×2 (13:47→13:51)
--- NOTE | 2019-08-06 15:10 | NUR ---
PT IS BACK TO HIS ROOM ROOM VIA HOSPITAL BED, FULLY AWAKE, ALERT ORIENTED X4, NO DISTRESS NOTED, CONTINUE MONITORING
--- NOTE | 2019-08-06 18:35 | NUR ---
PT IS SITTING UP EATING DINNER, TOLERATED WELL, CONTINUE MONITORING
--- NOTE | 2019-08-06 20:20 | NUR ---
Opening Shift Note Assumed care of patient, awake and alert. No S/S of distress/SOB or pain. Instructed on POC and to call for assist PRN, will continue to monitor for changes Q1hr and PRN. PATIENT RESTING IN BED CALL LIGHT IN HAND, BED IN LOWEST POSITION, SIDE RALES UP X2.
[2019-08-07] VITALS (7 sets, daily range): BP systolic 134–154; BP diastolic 81–106
[2019-08-07] MEDS: metroNIDAZOLE 500MG/100ML 100 ML IV SCH ×4 (00:23→22:30)
[2019-08-07] MEDS: ATORVASTATIN 20 MG TAB PO SCH ×3 (00:24→22:30)
[2019-08-07] MEDS: GABAPENTIN 300 MG CAP PO SCH ×3 (00:24→22:30)
[2019-08-07] MEDS: TACROLIMUS 1 MG CAP PO SCH ×3 (00:24→22:30)
[2019-08-07 07:21] LABS: Basophils # (auto) 0 10 ^3/uL (0-0.2); Basophils % (auto) 0.3 % (0.0-2.0); Eosinophils # (auto) 0.1 10 ^3/uL (0-0.8); Eosinophils % (auto) 1.9 % (0.0-7.0); Hematocrit 37.2 % (41.0-53.0); Hemoglobin 12.1 g/dL (13.5-17.5); Lymphocytes # (auto) 0.7 10 ^3/uL (0.4-5.4); Lymphocytes % (auto) 11.6 % (10.0-50.0); Mean Corpuscular Hemoglobin 26.8 pg (28.0-32.0); Mean Corpuscular Hgb Conc. 32.5 g/dL (32.0-36.0); Mean Corpuscular Volume 82.5 fL (80.0-100.0); Monocytes # (auto) 0.7 10 ^3/uL (0-1.3); Monocytes % (auto) 13.2 % (0.0-12.0); Neutrophils # (auto) 4.1 10 ^3/uL (1.6-8.6); Platelet Count (auto) 136 10^3/uL (140-450); Red Cell Distribution Width 16.8 % (11.8-14.3); White Blood Cell 5.7 10^3/uL (4.4-10.8)
--- NOTE | 2019-08-07 07:40 | NUR ---
Opening Shift Note Assumed care of patient, awake and alert. No S/S of distress/SOB or pain. Instructed on POC and to call for assist PRN. Bed at lowest locked position and call light within reach. Will continue to monitor for changes Q1hr and PRN.
[2019-08-07 07:41] LABS: Albumin 2.7 g/dL (3.4-5.0); Calcium 8.2 mg/dL (8.5-10.1); Potassium 4.1 mmol/L (3.5-5.1)
[2019-08-07 07:44] LABS: BUN/Creatinine Ratio 20.3; Bilirubin, Total 0.5 mg/dL (0.2-1.0); Total Protein 6.3 g/dL (6.4-8.2)
--- NOTE | 2019-08-07 08:15 | NUR ---
Patient ambulates to the restroom with steady gait. Will continue to monitor.
[2019-08-07] MEDS: levoFLOXacin 250MG 50 ML IV SCH (09:44)
[2019-08-07] MEDS: ENALAPRIL MALEATE 10 MG TAB PO SCH (09:45)
[2019-08-07] MEDS: PANTOPRAZOLE 40 MG/10 ML VIAL INJ IV SCH (09:45)
[2019-08-07] MEDS: FUROSEMIDE 40 MG TAB PO SCH (09:46)
--- NOTE | 2019-08-07 16:28 | NUR ---
rounds patient is comfortably sitting on the edge of the bed, bed at lowest locked position and call light within reach. Family at bedside. no c/o pain, no s/s of distress/sob noted/stated.
--- NOTE | 2019-08-07 18:33 | NUR ---
Informed patient of discharge orders, patient is upset and stated " absolutely no , i am not going anywhere, how is he discharging me and hasn't seen me today?" . paged Dr. Oakes. Addendum: 08/07/19 at 1911 by Adeola Ortega RN Dr. Oakes stated " discharge patient and have him follow up with PCP, call security if he refuses" Notified naval science teacher Donna. Patient is refusing to go. aware.
--- NOTE | 2019-08-07 19:12 | NUR ---
paged Dr. Oakes.
--- NOTE | 2019-08-07 19:30 | NUR ---
Report given to Imelda LEYVA
--- NOTE | 2019-08-07 20:46 | NUR ---
LEFT MESSAGE FOR DR. VICTOR REGARDING PATIENTS CONCERNS FOR BEING DISCHARGED AT THIS TIME. WILL AWAIT RETURN CALL.
--- NOTE | 2019-08-07 20:55 | NUR ---
MESSAGE LEFT FOR DR VICTOR. PATIENT HAS BP OF 151/106 WITH NO PRNS AND NEXT SCHEDULED BLOOD PRESSURE MEDICATION IS NOT UNTIL 08/07 AT 1000. WILL CONTINUE TO MONITOR AND WAIT FOR RETURN CALL.
--- NOTE | 2019-08-07 21:37 | NUR ---
SPOKE WITH DR VICTOR ABOUT DISCHARGE, DR VICTOR INSISTS PATIENT BE DISCHARGED TONIGHT. WILL SPEAK WITH PATIENT.
[2019-08-07] MEDS ORDERED: hydrALAZINE HCL 20 MG/ML VL IV PRN (21:45)
--- NOTE | 2019-08-07 21:50 | NUR ---
DISCHARGE CONCERN: PER RN YODIT, PT IS COMPLAINING ABOUT HIS MD NOT SEEING HIM FOR 3 DAYS AND NOT EXPLAINING ABOUT HIS SITUATION. WENT IN TO SEE PT, LYING IN BED WATCHING TV. PER PT, HE IS UPSET THAT HIS DOCTOR DID NOT SEE HIM FOR 3 DAYS. I INFORMED PT THAT PER NURSES NOTES, ON AUGUST 05 AT 0900, MD WAS AT BEDSIDE. PT STATED THAT HE DID NOT SEE AND MEET HIS DOCTOR. HE SAID HE DESERVES TO KNOW WHAT IS GOING ON TO HIM AND A DOCTOR HE SHOULD DO THAT AND EXPLAINED IT TO HIM. ALSO, HE SAID HIS WAS AT THE BEDSIDE UNTIL 06:30 PM TODAY AND LEFT WITH HIS [place]ON TO [place]NIGHT AND SHE HAS THE KEYS AT THEIR HOUSE. INFORMED PT I WILL PAGED HIS DOCTOR RE: HIS CONCERN AND WILL GIVE HIM AN UPDATE.
--- NOTE | 2019-08-07 21:51 | NUR ---
SPOKE WITH PATIENT REGARDING DR VICTOR INSISTING PATIENT BE DISCHARGED TONIGHT. PATIENT CONTINUES TO REFUSE DISCHARGE HE DOES NOT HAVE PARKER TO GET INTO HOME AND HIS IS [place]OWN, HE WAS UNDER THE IMPRESSION HE WOULD NOT BE DISCHARGED UNTIL AFTER THE WEEKEND. CHARGE NURSE IS AWARE AND WILL SPEAK WIT PATIENT.
--- NOTE | 2019-08-07 21:56 | NUR ---
Called/paged Dr. VICTOR called re:PT'S DISCHARGE . Waiting for call back. Continue care.
--- NOTE | 2019-08-07 23:00 | NUR ---
returned call Dr. VICTOR returned call, updated on patient status and reason for call, orders received to discharge pt in the morning. Continue care.
[2019-08-08] MEDS: metroNIDAZOLE 500MG/100ML 100 ML IV SCH ×3 (06:20→22:37)
--- NOTE | 2019-08-08 06:39 | NUR ---
PATIENT INSISTING DR FALL BE CALLED IN REGARDS TO HIS BLOOD PRESSURE MEDICATION. PATIENT HAS BP OF 166/98, HYDRALAZINE 10MG WAS ORDERED PRN FOR SBP>[address] VICTOR. PATIENT DID TAKE HYDRALAZINE AT 2230 WITH BP OF 172/112 WHICH LOWERED BP TO 154/98. HOWEVER AT THIS TIME PATIENT DOES NOT FEEL HE HAS A GOOD RAPPORT WITH DR VICTOR AND WANTS DR FALL TO MAKE PRIMARY DECISION ON CARDIAC MEDICATION. PATIENT WAS EDUCATED ON BENEFITS OF HYDRALAZINE. DR FALL WAS CALLED, HOWEVER THERE WAS NO ANSWER AND NO ANSWERING MACHINE TO LEAVE MESSAGE. WILL ENDORSE TO DAY SHIFT.
--- NOTE | 2019-08-08 07:50 | NUR ---
Opening Shift Note Assumed care of patient, awake and alert. No S/S of distress/SOB or pain. Instructed on POC and to call for assist PRN. Patient is is requesting for Dr. Bourgeois to be called, he states " Dr. Bourgeois has to take care of my heart and blood pressure" Will page . Will continue to monitor for changes Q1hr and PRN Bed at lowest locked position and call light within reach. .
[2019-08-08 08:00] VITALS: BP 160/98
--- NOTE | 2019-08-08 08:52 | NUR ---
Left message with Dr. Bourgeois regarding patient's wishes to speak to him. Awaiting call back.
[2019-08-08] MEDS: ATORVASTATIN 20 MG TAB PO SCH ×2 (08:54→22:37)
[2019-08-08 09:00] VITALS: BP 160/98
[2019-08-08] MEDS: ENALAPRIL MALEATE 10 MG TAB PO SCH (09:48)
[2019-08-08] MEDS: FUROSEMIDE 40 MG TAB PO SCH (09:48)
[2019-08-08] MEDS: GABAPENTIN 300 MG CAP PO SCH ×2 (09:49→22:38)
[2019-08-08] MEDS: TACROLIMUS 1 MG CAP PO SCH ×2 (09:50→22:38)
[2019-08-08] MEDS: PANTOPRAZOLE 40 MG/10 ML VIAL INJ IV SCH (09:50)
[2019-08-08] MEDS: levoFLOXacin 250MG 50 ML IV SCH (09:51)
--- NOTE | 2019-08-08 10:49 | NUR ---
at bedside, spoke to patient. Dr. Bourgeois is holding the discharge. MD will call Champ to update.
[2019-08-08] MEDS ORDERED: FUROSEMIDE 20 MG/2 ML VIAL IV ONE (11:00)
[2019-08-08] MEDS: hydrALAZINE HCL 20 MG/ML VL IV PRN (12:05)
[2019-08-08 13:00] VITALS: BP 157/108
--- NOTE | 2019-08-08 15:00 | NUR ---
IV removal Iv leaking. IV DC'd with clean sterile technique, catheter fully intact. Pressure dressing applied to site. Patient tolerated well.
[2019-08-08 15:23] LABS: Basophils # (auto) 0 10 ^3/uL (0-0.2); Basophils % (auto) 0.3 % (0.0-2.0); Eosinophils # (auto) 0.1 10 ^3/uL (0-0.8); Eosinophils % (auto) 0.7 % (0.0-7.0); Hemoglobin 13.6 g/dL (13.5-17.5); White Blood Cell 8.4 10^3/uL (4.4-10.8)
[2019-08-08 15:25] LABS: Hematocrit 41.8 % (41.0-53.0); Lymphocytes # (auto) 0.6 10 ^3/uL (0.4-5.4); Lymphocytes % (auto) 7.2 % (10.0-50.0); Mean Corpuscular Hemoglobin 26.5 pg (28.0-32.0); Mean Corpuscular Hgb Conc. 32.5 g/dL (32.0-36.0); Mean Corpuscular Volume 81.5 fL (80.0-100.0); Monocytes # (auto) 0.9 10 ^3/uL (0-1.3); Monocytes % (auto) 10.4 % (0.0-12.0); Neutrophils # (auto) 6.9 10 ^3/uL (1.6-8.6); Neutrophils % (auto) 81.4 % (37.0-80.0); Nucleated Red Blood Cells % 0.2 %; Platelet Count (auto) 157 10^3/uL (140-450); Red Blood Cells 5.13 10^6/uL (4.5-5.90)
[2019-08-08 15:29] LABS: Albumin 3.2 g/dL (3.4-5.0); Calcium 8.9 mg/dL (8.5-10.1); Potassium 3.9 mmol/L (3.5-5.1)
--- NOTE | 2019-08-08 15:30 | NUR ---
IV insertion by Aryan RN IV access obtained, via clean sterile technique by inserting 24 gauge catheter at R HAND after 3 attempts. IV secured properly. No trauma to site. Patient tolerated well.
[2019-08-08 15:32] LABS: BUN/Creatinine Ratio 14.6; Bilirubin, Total 0.6 mg/dL (0.2-1.0); Total Protein 7.4 g/dL (6.4-8.2)
[2019-08-08 17:00] VITALS: BP 128/84
[2019-08-08] MEDS: FUROSEMIDE 40 MG/4 ML VIAL IV SCH (18:12)
--- NOTE | 2019-08-08 19:15 | NUR ---
Received report from the DAY RN. Ibarra. Initial assessment done. Pt. in bed resting, alert, awake, oriented x 4, in Room Air with o2 sat. of 97 %, no s/s of sob, lung expansion equal, denies chest pain, verb. presence of neuropathic pain about 2-3/10 scale @ this time, pt. coherent and follows command, adlib in bed. Pt. on Tele # 17 , SR when in bed resting and ST with BBB around 100's per minute when moving, ambulating and exerting effort. PIV site @ the Right Hand G # 24 Saline Lock. Pt. adlib in bed and resting after eating or completing his dinner. Maintained pt. safety and call-light within pt.'s reach.
[2019-08-08 20:00] VITALS: BP 134/91
--- NOTE | 2019-08-08 22:37 | NUR ---
Meds. as scheduled Per oral given @ this time. Pt. made aware of the mechanism of action of the meds. given. Pt. verbalized understanding. Pt. given also anti-rejection medication from past organ transplantation (POM). Pt. keep informed and made aware of his present nsg. care.
[2019-08-09] VITALS: BP 157/97
[2019-08-09] MEDS: hydrALAZINE HCL 20 MG/ML VL IV PRN (00:22)
--- NOTE | 2019-08-09 00:22 | NUR ---
Pt. given Hydralazine 10 mg. = 0.5 ml. IV prn for SBP > 150 , present BP = 157/97 , HR = 104/min. Pt. given explanation of the anti-hypertensive prn IV med. Pt. verbalized understanding.
--- NOTE | 2019-08-09 00:30 | NUR ---
Pt. BRP with min. assist, able to void, ST when up and above. HR = 108/minute. Pt. returned to the bed safely and ready to sleep. Provided pt. new blankets. Keep pt. 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
--- NOTE | 2019-08-09 01:00 | NUR ---
Pt. BP decreased from 157/97 to 144/83 @ this time. Pt. BP = 144/83, HR = 105/min. s/p Hydralazine 10 mg.=0.5 ml. IV prn given. See Emar.
--- NOTE | 2019-08-09 02:00 | NUR ---
Pt. resting and sleeping. Pt. SR @ the 80's with BBB when resting. Keep environment tranquil or quiet and dim-lighted to promote rest and sleep.
--- NOTE | 2019-08-09 04:00 | NUR ---
Pt. still sleeping undisturbed. No s/s of acute change. SR @ the 80's with BBB @ the monitor. ST @ the low 100'a per minute when up and ambulating to the BR. Pt. returned to sleep.
[2019-08-09 05:00] VITALS: BP 141/85
[2019-08-09] MEDS: metroNIDAZOLE 500MG/100ML 100 ML IV SCH (05:46)
[2019-08-09] MEDS: FUROSEMIDE 40 MG/4 ML VIAL IV SCH (05:46)
--- NOTE | 2019-08-09 05:46 | NUR ---
Meds. as scheduled for 0600 Am given. Pt. aware of scheduled meds. and verbalized understanding of its indication.
--- NOTE | 2019-08-09 07:20 | NUR ---
Opening Shift Note Assumed care of patient, awake and alert. No S/S of distress/SOB or pain. Instructed on POC and to call for assist PRN, will continue to monitor for changes Q1hr and PRN.
[2019-08-09 08:44] VITALS: BP 131/72
[2019-08-09] MEDS: levoFLOXacin 250MG 50 ML IV SCH (10:30)
[2019-08-09] MEDS: PANTOPRAZOLE 40 MG/10 ML VIAL INJ IV SCH (10:30)
[2019-08-09] MEDS: ATORVASTATIN 20 MG TAB PO SCH ×2 (10:31→21:38)
[2019-08-09] MEDS: GABAPENTIN 300 MG CAP PO SCH ×2 (10:31→21:37)
[2019-08-09] MEDS: ENALAPRIL MALEATE 10 MG TAB PO SCH (10:31)
[2019-08-09] MEDS: TACROLIMUS 1 MG CAP PO SCH (10:32)
[2019-08-09] MEDS: SIMETHICONE 80 MG CHEWABLE TABLET PO SCH ×3 (12:10→21:36)
[2019-08-09] MEDS: DICYCLOMINE HCL 10 MG CAP PO SCH ×3 (12:10→21:38)
[2019-08-09 13:00] VITALS: BP 140/93
--- NOTE | 2019-08-09 14:46 | NUR ---
Nutrition Assessment Notes Please refer to link for full assessment notes. Est energy needs: 1683-7210 kcals (17-20 kcal/kgBW) Est protein needs: 87-95 gms/day (1.0-1.1 gm/kgAdjBW) Will continue to monitor and reassess prn. Addendum: 08/09/19 at [address] Amended: Links added.
[2019-08-09 17:00] VITALS: BP 110/71
[2019-08-09] MEDS: metroNIDAZOLE 500 MG TAB PO SCH ×2 (18:42→21:37)
[2019-08-09] MEDS: FUROSEMIDE 20 MG TAB PO SCH (18:44)
--- NOTE | 2019-08-09 19:30 | NUR ---
Opening Shift Note Report received, Initial assessment done. Pt. in bed resting, alert, awake, oriented x 4, on Room Air, no s/s of sob, lung expansion equal, denies chest pain, verb. Pt. on Tele # [phone] , SR when in bed resting and ST with BBB around 100's per minute when moving, ambulating and exerting effort. No IV site ate this time. bed is low, locked, and two side rails raised with call jimenez within reach. Instructed patient on POC and instructed to call for assistance PRN. Will continue to monitor PRN Q1 hour
[2019-08-09 20:00] VITALS: BP 129/73
[2019-08-10] MEDS: TACROLIMUS 1 MG CAP PO SCH ×2 (01:34→10:00)
[2019-08-10] MEDS: FUROSEMIDE 20 MG TAB PO SCH (05:47)
[2019-08-10] MEDS: DICYCLOMINE HCL 10 MG CAP PO SCH (05:47)
[2019-08-10] MEDS: metroNIDAZOLE 500 MG TAB PO SCH (05:47)
[2019-08-10] MEDS: SIMETHICONE 80 MG CHEWABLE TABLET PO SCH (05:47)
[2019-08-10 05:54] VITALS: BP 121/70
[2019-08-10] MEDS ORDERED: cefTRIAXone 1GM/50ML D5W 50 ML IV SCH (09:00)
[2019-08-10 09:30] VITALS: BP 132/80
[2019-08-10] MEDS ORDERED: levoFLOXacin 250 MG TAB PO SCH (10:00)
[2019-08-10] MEDS: PANTOPRAZOLE 40 MG/10 ML VIAL INJ IV SCH (10:00)
[2019-08-10] MEDS: ATORVASTATIN 20 MG TAB PO SCH (10:00)
[2019-08-10] MEDS: GABAPENTIN 300 MG CAP PO SCH (10:57)
[2019-08-10] MEDS: ENALAPRIL MALEATE 10 MG TAB PO SCH (10:58)
--- NOTE | 2019-08-10 11:02 | NUR ---
Discussed plans for discharge. Asks to have instructions for any new medications so he can understand the purpose. States that helps him when he goes home. is expected to come for him at 1500.
[2019-08-10 13:00] VITALS: BP 130/80
--- NOTE | 2019-08-10 13:14 | NUR ---
DR. FALL ROUNDED IN AM AND EXPRESSED OK TO DC HOME PT IS SCHEDULED TO F/U WITH HIM OUT PATIENT. CALL TO DR. VICTOR OFFICE. NO DC ORDERS YET.
[2019-08-10 13:19] VITALS: BP 121/70
--- NOTE | 2019-08-10 14:00 | NUR ---
SECOND CALL DR. VICTOR'S OFFICE FOR DC ORDERS. PHARMACY INFO UPDATED. PT HAS EXPRESSED ANXIETY ABOUT BEING READY FOR WHEN HIS COMES TO PICK HIM UP.
--- NOTE | 2019-08-10 14:26 | NUR ---
3RD CALL TO DR. VICTOR'S OFFICE FOR DC ORDER AND MED REC FOR DC HOME.
--- NOTE | 2019-08-10 15:00 | NUR ---
DR. VICTOR ON UNIT. WRITES SCRIPT. PT DRESSED. SIGNS DC INSTRUCTIONS. STATES HAS F/U APPOINTMENT. DC HOME VIA WC TO WAITING PRIVATE VEHICLE
== END 2019-08-10 15:08 | disposition home or self-care (01) | DRG 392 ==
LOC: ER 09:37 → TELE 09:38 → TELE-EAST 15:10
PROVIDERS: ADMIT Internal Medicine; ATTEND Internal Medicine
PROC: 0DJD8ZZ Inspection of Lower Intestinal Tract, Via Natural or Artificial Opening Endoscopic (ICD-10-PCS; principal; 2019-08-06 13:37)
DX: K57.90 Diverticulosis of intestine, part unspecified, without perforation or abscess without bleeding (principal); E44.0 Moderate protein-calorie malnutrition; Z94.1 Heart transplant status; R18.8 Other ascites; Z94.0 Kidney transplant status; C64.1 Malignant neoplasm of right kidney, except renal pelvis; K64.8 Other hemorrhoids; R31.0 Gross hematuria; I11.0 Hypertensive heart disease with heart failure; I50.9 Heart failure, unspecified; Z95.1 Presence of aortocoronary bypass graft; Z85.828 Personal history of other malignant neoplasm of skin; Z79.899 Other long term (current) drug therapy; Z86.73 Personal history of transient ischemic attack (TIA), and cerebral infarction without residual deficits
CPT/HCPCS: 36415; 45378; 70450; 71045; 74176; 80053; 81001; 82962; 83880; 84484; 85025; 85610; 93005; 93970; 96361; 96374; 97163; C9113; G0378; J2250; J3490; J7507

== ENCOUNTER 2022-01-11 02:44 | Inpatient (IN) | payer MEDICARE ==
[~2022-01-11] VITALS: Ht 182.9 cm; Wt 72.2 kg
[~2022-01-11 02:44] MED LIST changes: -ENAL10TA PO; +ENAL10TA12 PO
[2022-01-11] MEDS ORDERED: SODIUM CHLORIDE 0.9% 1,000 ML IV ONE (03:45)
[2022-01-11] MEDS ORDERED: CEFEPIME 1GM/ 50ML 50 ML IV ONE (03:45)
[2022-01-11] MEDS ORDERED: ACETAMINOPHEN 325 MG TAB PO ONE (03:45)
[2022-01-11] MEDS ORDERED: VANCOMYCIN 1GM/250ML 250 ML IV ONE (03:45)
[2022-01-11 04:07] LABS: Hematocrit 41.7 % (41.0-53.0); Hemoglobin 13.2 g/dL (13.5-17.5); Mean Corpuscular Hgb Conc. 31.7 g/dL (32.0-36.0); Mean Corpuscular Volume 91.5 fL (80.0-100.0); Red Blood Cells 4.56 10^6/uL (4.5-5.90); Red Cell Distribution Width 15.3 % (11.8-14.3); White Blood Cell 7.8 10^3/uL (4.4-10.8)
[2022-01-11 04:09] LABS: Albumin 3.4 g/dL (3.4-5.0); Calcium 8.5 mg/dL (8.5-10.1); Potassium 3.6 mmol/L (3.5-5.1)
[2022-01-11 04:13] LABS: Urine Bacteria FEW /hpf (None Seen); Urine Blood 3+ /uL (Negative); Urine Specific Gravity 1.012 (1.001-1.035); Urine WBC 3 /hpf (0 - 3)
[2022-01-11 04:13] LABS: BUN/Creatinine Ratio 18.4; Basophils % (manual) 0 (0.0-2.0); Bilirubin, Total 0.7 mg/dL (0.2-1.0); Blast Cells 0; Eosinophils % (manual) 0 (0-7); Metamyelocytes % 0; Myelocytes % 0; Promyelocytes % 0; Reactive Lymphocytes 0
[2022-01-11 04:49] LABS: Band Neutrophils % (manual) 27; Lymphocytes % (manual) 2 (10.0-50.0); Monocytes % (manual) 1 (0-12)
[2022-01-11] MEDS ORDERED: ASPirin 325 MG TAB PO ONE (05:15)
[2022-01-11] MEDS ORDERED: DOCUSATE SOD 100 MG CAP PO PRN (06:30)
[2022-01-11] MEDS ORDERED: ONDANSETRON HCL 4 MG/2 ML VIAL IV PRN (06:30)
[2022-01-11] MEDS ORDERED: HYDROcodone-ACET 5/325MG TAB PO PRN (06:30)
[2022-01-11] MEDS ORDERED: AZITHROMYCIN 500MG/ 250ML 250 ML IV ONE (06:30)
[2022-01-11] MEDS ORDERED: NITROGLYCERIN 0.4 MG SL TAB SL PRN (07:15)
[2022-01-11] MEDS ORDERED: MORPHINE SULFATE INJ 2 MG/ml SYRG IV PRN (07:15)
[2022-01-11 07:42] LABS: Basophils # (auto) 0 10 ^3/uL (0-0.2); Basophils % (auto) 0.2 % (0.0-2.0); Eosinophils # (auto) 0 10 ^3/uL (0-0.8); Hematocrit 37.2 % (41.0-53.0); Hemoglobin 11.7 g/dL (13.5-17.5); Lymphocytes # (auto) 0.1 10 ^3/uL (0.4-5.4); Lymphocytes % (auto) 1.2 % (10.0-50.0); Mean Corpuscular Hemoglobin 28.5 pg (28.0-32.0); Mean Corpuscular Hgb Conc. 31.5 g/dL (32.0-36.0); Mean Corpuscular Volume 90.6 fL (80.0-100.0); Monocytes # (auto) 0.8 10 ^3/uL (0-1.3); Monocytes % (auto) 6.3 % (0.0-12.0); Neutrophils # (auto) 11.1 10 ^3/uL (1.6-8.6); Neutrophils % (auto) 92.3 % (37.0-80.0); Red Cell Distribution Width 15.1 % (11.8-14.3); White Blood Cell 12.1 10^3/uL (4.4-10.8)
[2022-01-11 08:02] LABS: Albumin 2.8 g/dL (3.4-5.0); Calcium 7.7 mg/dL (8.5-10.1); Potassium 3.3 mmol/L (3.5-5.1)
[2022-01-11 08:05] LABS: BUN/Creatinine Ratio 16.9; Bilirubin, Total 0.7 mg/dL (0.2-1.0); Total Protein 5.9 g/dL (6.4-8.2)
[2022-01-11] MEDS ORDERED: cefTRIAXone 1GM/50ML D5W 50 ML IV SCH (09:00)
[2022-01-11] MEDS ORDERED: SODIUM CHLORIDE 0.9% 500 ML IV ONE (09:15)
[2022-01-11] MEDS: NOREPINEPHRINE 8 MG/250ML KIT 250 ML IV SCH (11:11)
[2022-01-11] MEDS: ASCORBIC ACID 500 MG TAB PO SCH ×2 (11:23→22:02)
[2022-01-11] MEDS: ASPirin 81 mg TAB PO SCH (11:23)
[2022-01-11] MEDS: ZINC SULFATE 220mg CAP or TAB PO SCH (11:23)
[2022-01-11] MEDS: MULTIPLE VITAMIN TAB PO SCH (11:26)
[2022-01-11] MEDS: TACROLIMUS 1 MG CAP PO SCH ×2 (11:51→22:00)
[2022-01-11] MEDS: SODIUM CHLOR 0.9% PF (SALINE LOCK) 10ML VIAL/SYR IV SCH ×2 (14:10→22:01)
[2022-01-11] MEDS ORDERED: HEPARIN DRIP/D5W 100UNITS/ML 250 ML IV SCH ×2 (15:00→22:30)
[2022-01-11] MEDS ORDERED: HEPARIN SODIUM (PORCINE) 5000 UNITS/ML 1ML VIAL IV ONE (15:00)
[2022-01-11] MEDS ORDERED: VANCOMYCIN PER PHARMACY 0 MG IV SCH (15:15)
[2022-01-11] MEDS ORDERED: LIDOCAINE HCL 2% TOP JELLY 5ML TOP ONE (16:30)
[2022-01-11] MEDS ORDERED: LIDOCAINE HCL 5 % TOP OINT 35 GM TOP ONE (17:45)
[2022-01-11] MEDS ORDERED: LIDOCAINE VISCOUS 2% 15ML UD MT ONE (18:00)
[2022-01-11] MEDS: FUROSEMIDE 100 MG/10ML VIAL IV SCH (18:28)
[2022-01-11 18:43] LABS: INR 1.26 (0.9-1.15); Partial Thromboplastin Time 38.7 sec (24.6-33.4)
[2022-01-11] MEDS: ATORVASTATIN 20 MG TAB PO SCH (22:03)
[2022-01-11 22:07] LABS: INR 1.35 (0.9-1.15); Partial Thromboplastin Time 42.5 sec (24.6-33.4)
[2022-01-11] MEDS: VANCOMYCIN 1GM/250ML 250 ML IV SCH (23:48)
[2022-01-12 06:13] LABS: Basophils # (auto) 0 10 ^3/uL (0-0.2); Basophils % (auto) 0.2 % (0.0-2.0); Eosinophils # (auto) 0 10 ^3/uL (0-0.8); Eosinophils % (auto) 0.2 % (0.0-7.0); Hematocrit 34.6 % (41.0-53.0); Hemoglobin 10.8 g/dL (13.5-17.5); Lymphocytes # (auto) 0.7 10 ^3/uL (0.4-5.4); Lymphocytes % (auto) 3.9 % (10.0-50.0); Mean Corpuscular Hemoglobin 28.8 pg (28.0-32.0); Mean Corpuscular Hgb Conc. 31.3 g/dL (32.0-36.0); Mean Corpuscular Volume 91.9 fL (80.0-100.0); Monocytes # (auto) 1.3 10 ^3/uL (0-1.3); Monocytes % (auto) 7.3 % (0.0-12.0); Neutrophils # (auto) 15.5 10 ^3/uL (1.6-8.6); Neutrophils % (auto) 88.4 % (37.0-80.0); Red Blood Cells 3.77 10^6/uL (4.5-5.90); Red Cell Distribution Width 15.5 % (11.8-14.3); White Blood Cell 17.6 10^3/uL (4.4-10.8)
[2022-01-12] MEDS: SODIUM CHLOR 0.9% PF (SALINE LOCK) 10ML VIAL/SYR IV SCH ×3 (06:21→21:54)
[2022-01-12] MEDS: FUROSEMIDE 100 MG/10ML VIAL IV SCH ×2 (06:25→18:20)
[2022-01-12 06:27] LABS: INR 1.34 (0.9-1.15); Partial Thromboplastin Time 49.4 sec (24.6-33.4)
[2022-01-12 06:28] LABS: Albumin 2.3 g/dL (3.4-5.0); BUN/Creatinine Ratio 21.7; Calcium 6.5 mg/dL (8.5-10.1); Potassium 3.4 mmol/L (3.5-5.1)
[2022-01-12 06:31] LABS: Bilirubin, Total 0.5 mg/dL (0.2-1.0); Total Protein 5.2 g/dL (6.4-8.2)
[2022-01-12] MEDS: HEPARIN DRIP/D5W 100UNITS/ML 250 ML IV SCH ×2 (07:05→11:08)
[2022-01-12] MEDS: ASPirin 81 mg TAB PO SCH (10:38)
[2022-01-12] MEDS: ZINC SULFATE 220mg CAP or TAB PO SCH (10:38)
[2022-01-12] MEDS: MULTIPLE VITAMIN TAB PO SCH (10:38)
[2022-01-12] MEDS: TACROLIMUS 1 MG CAP PO SCH ×2 (10:38→21:54)
[2022-01-12] MEDS: ASCORBIC ACID 500 MG TAB PO SCH ×2 (10:38→21:53)
[2022-01-12] MEDS: AZITHROMYCIN 500MG/ 250ML 250 ML IV SCH (10:39)
[2022-01-12] MEDS: NOREPINEPHRINE 8 MG/250ML KIT 250 ML IV SCH (10:45)
[2022-01-12 14:03] LABS: INR 1.18 (0.9-1.15); Partial Thromboplastin Time 46.1 sec (24.6-33.4)
[2022-01-12] MEDS ORDERED: HEPARIN DRIP/D5W 100UNITS/ML 250 ML IV SCH (14:15)
[2022-01-12] MEDS ORDERED: POTASSIUM CHL 20 Meq TABLET PO ONE (14:30)
[2022-01-12 20:52] LABS: INR 1.08 (0.9-1.15); Partial Thromboplastin Time 31.3 sec (24.6-33.4)
[2022-01-12] MEDS: VANCOMYCIN 1GM/250ML 250 ML IV SCH (21:52)
[2022-01-12] MEDS: ATORVASTATIN 20 MG TAB PO SCH (21:53)
[2022-01-12 23:07] VITALS: BP 152/93
[2022-01-13 03:38] LABS: INR 1.01 (0.9-1.15); Partial Thromboplastin Time 32.2 sec (24.6-33.4)
[2022-01-13] MEDS ORDERED: HEPARIN SODIUM (PORCINE) 5000 UNITS/ML 1ML VIAL IV ONE (03:45)
[2022-01-13] MEDS ORDERED: HEPARIN DRIP/D5W 100UNITS/ML 250 ML IV SCH ×3 (04:00→20:00)
[2022-01-13] MEDS: hydrALAZINE HCL 20 MG/ML VL IV PRN (04:12)
[2022-01-13] MEDS: ACETAMINOPHEN 325 MG TAB PO PRN ×2 (04:12→21:26)
[2022-01-13 05:00] VITALS: BP 156/90
[2022-01-13] MEDS: SODIUM CHLOR 0.9% PF (SALINE LOCK) 10ML VIAL/SYR IV SCH ×3 (05:49→21:19)
[2022-01-13] MEDS: FUROSEMIDE 100 MG/10ML VIAL IV SCH ×2 (05:49→11:47)
[2022-01-13 08:59] VITALS: BP 149/85
[2022-01-13] MEDS: ASPirin 81 mg TAB PO SCH (09:33)
[2022-01-13] MEDS: AZITHROMYCIN 500MG/ 250ML 250 ML IV SCH (09:33)
[2022-01-13] MEDS: ASCORBIC ACID 500 MG TAB PO SCH ×2 (09:34→21:15)
[2022-01-13] MEDS: ZINC SULFATE 220mg CAP or TAB PO SCH (09:34)
[2022-01-13] MEDS: MULTIPLE VITAMIN TAB PO SCH (09:34)
[2022-01-13] MEDS: TACROLIMUS 1 MG CAP PO SCH ×2 (09:34→21:15)
[2022-01-13] MEDS: METOPROLOL SUCCINATE XL 50 MG TAB PO SCH (09:35)
[2022-01-13] MEDS ORDERED: METOPROLOL SUCCINATE XL 50 MG TAB PO SCH (10:00)
[2022-01-13] MEDS ORDERED: DOCUSATE SOD 100 MG CAP PO PRN (10:45)
[2022-01-13] MEDS ORDERED: MILK OF MAGNESIA 30ML SUSP PO ONE (10:45)
[2022-01-13 11:31] LABS: Basophils # (auto) 0 10 ^3/uL (0-0.2); Basophils % (auto) 0.1 % (0.0-2.0); Eosinophils # (auto) 0.1 10 ^3/uL (0-0.8); Eosinophils % (auto) 0.8 % (0.0-7.0); Hematocrit 42.1 % (41.0-53.0); Hemoglobin 13.7 g/dL (13.5-17.5); Lymphocytes # (auto) 0.7 10 ^3/uL (0.4-5.4); Lymphocytes % (auto) 4.5 % (10.0-50.0); Mean Corpuscular Hemoglobin 29.4 pg (28.0-32.0); Mean Corpuscular Hgb Conc. 32.6 g/dL (32.0-36.0); Monocytes # (auto) 0.9 10 ^3/uL (0-1.3); Monocytes % (auto) 5.6 % (0.0-12.0); Neutrophils # (auto) 14.8 10 ^3/uL (1.6-8.6); Red Blood Cells 4.68 10^6/uL (4.5-5.90); Red Cell Distribution Width 15.5 % (11.8-14.3); White Blood Cell 16.6 10^3/uL (4.4-10.8)
[2022-01-13 11:43] LABS: BUN/Creatinine Ratio 23.5; Calcium 8.8 mg/dL (8.5-10.1); INR 1.03 (0.9-1.15); Phosphorus 2.3 mg/dL (2.5-4.90); Potassium 3.7 mmol/L (3.5-5.1)
[2022-01-13 11:45] LABS: Calcium 8.7 mg/dL (8.5-10.1); Potassium 3.7 mmol/L (3.5-5.1)
[2022-01-13 11:51] LABS: Albumin 2.9 g/dL (3.4-5.0); BUN/Creatinine Ratio 22.3; Bilirubin, Total 0.6 mg/dL (0.2-1.0); Magnesium 2.1 mg/dL (1.6-2.6); Total Protein 7.3 g/dL (6.4-8.2)
[2022-01-13 13:00] VITALS: BP 149/83
[2022-01-13 16:10] VITALS: BP 145/93
[2022-01-13] MEDS: VANCOMYCIN 1GM/250ML 250 ML IV SCH (16:13)
[2022-01-13 19:35] LABS: INR 1.03 (0.9-1.15); Partial Thromboplastin Time 39.2 sec (24.6-33.4)
[2022-01-13] MEDS: ATORVASTATIN 20 MG TAB PO SCH (21:16)
[2022-01-13 22:00] VITALS: BP 144/86
[2022-01-14 03:09] LABS: INR 1.02 (0.9-1.15); Partial Thromboplastin Time 46.5 sec (24.6-33.4)
[2022-01-14] MEDS ORDERED: HEPARIN DRIP/D5W 100UNITS/ML 250 ML IV SCH (03:45)
[2022-01-14] MEDS: hydrALAZINE HCL 20 MG/ML VL IV PRN (04:40)
[2022-01-14 05:00] VITALS: BP 163/93
[2022-01-14] MEDS: SODIUM CHLOR 0.9% PF (SALINE LOCK) 10ML VIAL/SYR IV SCH ×2 (05:47→16:27)
[2022-01-14] MEDS: TACROLIMUS 1 MG CAP PO SCH (09:19)
[2022-01-14] MEDS: ASPirin 81 mg TAB PO SCH (09:20)
[2022-01-14] MEDS: ZINC SULFATE 220mg CAP or TAB PO SCH (09:20)
[2022-01-14] MEDS: ASCORBIC ACID 500 MG TAB PO SCH (09:20)
[2022-01-14] MEDS: ACETAMINOPHEN 325 MG TAB PO PRN ×2 (09:20→16:24)
[2022-01-14] MEDS: MULTIPLE VITAMIN TAB PO SCH (09:20)
[2022-01-14] MEDS: METOPROLOL SUCCINATE XL 50 MG TAB PO SCH (09:21)
[2022-01-14] MEDS: FUROSEMIDE 100 MG/10ML VIAL IV SCH (09:21)
[2022-01-14] MEDS: AZITHROMYCIN 500MG/ 250ML 250 ML IV SCH (09:22)
[2022-01-14 10:30] VITALS: BP 157/87
[2022-01-14] MEDS ORDERED: CEFTRIAXONE SODIUM 2 GM in D5W 5% 50 ML IV ONE (11:15)
[2022-01-14] MEDS: VANCOMYCIN 1GM/250ML 250 ML IV SCH (12:03)
[2022-01-14 13:51] VITALS: BP 139/92
[2022-01-14 17:02] VITALS: BP 162/97
[2022-01-14 20:00] VITALS: BP 157/87
[2022-01-14 22:00] VITALS: BP 160/96
[2022-01-14 23:49] LABS: INR 1.02 (0.9-1.15); Partial Thromboplastin Time 25.7 sec (24.6-33.4)
[2022-01-15] MEDS: GABAPENTIN 300 MG CAP PO SCH ×3 (00:19→21:31)
[2022-01-15] MEDS: ATORVASTATIN 20 MG TAB PO SCH ×2 (00:19→21:31)
[2022-01-15] MEDS: TACROLIMUS 1 MG CAP PO SCH ×3 (00:20→21:31)
[2022-01-15] MEDS: SODIUM CHLOR 0.9% PF (SALINE LOCK) 10ML VIAL/SYR IV SCH ×4 (00:20→21:31)
[2022-01-15] MEDS: hydrALAZINE HCL 20 MG/ML VL IV PRN (04:25)
[2022-01-15 05:00] VITALS: BP 160/95
[2022-01-15 07:10] LABS: Calcium 8.5 mg/dL (8.5-10.1); Potassium 4.3 mmol/L (3.5-5.1)
[2022-01-15 07:12] LABS: BUN/Creatinine Ratio 20.4
[2022-01-15] MEDS: VANCOMYCIN 1GM/250ML 250 ML IV SCH (09:09)
[2022-01-15] MEDS: MULTIPLE VITAMIN TAB PO SCH (09:10)
[2022-01-15] MEDS: ASPirin 81 mg TAB PO SCH (09:10)
[2022-01-15] MEDS: METOPROLOL SUCCINATE XL 50 MG TAB PO SCH (09:11)
[2022-01-15] MEDS: CEFTRIAXONE SODIUM 2 GM in D5W 5% 50 ML IV SCH (09:11)
[2022-01-15] MEDS: FUROSEMIDE 100 MG/10ML VIAL IV SCH (09:12)
[2022-01-15] MEDS: EVEROLIMUS 1 MG PO SCH (09:21)
[2022-01-15] MEDS ORDERED: LABETALOL HCL 5 MG/ML 4ML SYRINGE IV PRN (09:45)
[2022-01-15 12:08] LABS: Basophils # (auto) 0 10 ^3/uL (0-0.2); Basophils % (auto) 0.3 % (0.0-2.0); Eosinophils # (auto) 0.1 10 ^3/uL (0-0.8); Eosinophils % (auto) 0.5 % (0.0-7.0); Hematocrit 44.5 % (41.0-53.0); Hemoglobin 14.3 g/dL (13.5-17.5); Lymphocytes # (auto) 0.9 10 ^3/uL (0.4-5.4); Mean Corpuscular Hemoglobin 28.7 pg (28.0-32.0); Mean Corpuscular Hgb Conc. 32.1 g/dL (32.0-36.0); Mean Corpuscular Volume 89.5 fL (80.0-100.0); Monocytes # (auto) 0.8 10 ^3/uL (0-1.3); Monocytes % (auto) 7.6 % (0.0-12.0); Neutrophils # (auto) 8.9 10 ^3/uL (1.6-8.6); Neutrophils % (auto) 83.6 % (37.0-80.0); Red Blood Cells 4.97 10^6/uL (4.5-5.90); Red Cell Distribution Width 14.8 % (11.8-14.3); White Blood Cell 10.7 10^3/uL (4.4-10.8)
[2022-01-15 12:50] VITALS: BP 99/73
[2022-01-15 16:36] VITALS: BP 114/78
[2022-01-15 22:00] VITALS: BP 159/86
[2022-01-16 05:00] VITALS: BP 137/80
[2022-01-16] MEDS: SODIUM CHLOR 0.9% PF (SALINE LOCK) 10ML VIAL/SYR IV SCH ×3 (05:04→22:09)
[2022-01-16 08:28] LABS: Hematocrit 41.9 % (41.0-53.0); Hemoglobin 13.6 g/dL (13.5-17.5); Mean Corpuscular Hgb Conc. 32.5 g/dL (32.0-36.0); Mean Corpuscular Volume 89.1 fL (80.0-100.0); Red Cell Distribution Width 14.9 % (11.8-14.3); White Blood Cell 8.4 10^3/uL (4.4-10.8)
[2022-01-16 08:33] LABS: Basophils % (manual) 0 (0.0-2.0); Blast Cells 0; Metamyelocytes % 0; Myelocytes % 0; Promyelocytes % 0; Reactive Lymphocytes 0
[2022-01-16 08:46] LABS: Band Neutrophils % (manual) 7; Eosinophils % (manual) 3 (0-7); Lymphocytes % (manual) 19 (10.0-50.0); Monocytes % (manual) 10 (0-12)
[2022-01-16 08:58] LABS: BUN/Creatinine Ratio 21.9; Calcium 8.6 mg/dL (8.5-10.1)
[2022-01-16 09:00] VITALS: BP 128/83
[2022-01-16] MEDS: CEFTRIAXONE SODIUM 2 GM in D5W 5% 50 ML IV SCH (10:06)
[2022-01-16] MEDS: FUROSEMIDE 100 MG/10ML VIAL IV SCH (10:06)
[2022-01-16] MEDS: MULTIPLE VITAMIN TAB PO SCH (10:07)
[2022-01-16] MEDS: GABAPENTIN 300 MG CAP PO SCH ×2 (10:07→22:09)
[2022-01-16] MEDS: ASPirin 81 mg TAB PO SCH (10:07)
[2022-01-16] MEDS: EVEROLIMUS 1 MG PO SCH (10:07)
[2022-01-16] MEDS: METOPROLOL SUCCINATE XL 50 MG TAB PO SCH (10:07)
[2022-01-16] MEDS: TACROLIMUS 1 MG CAP PO SCH ×2 (10:08→22:09)
[2022-01-16 13:00] VITALS: BP 130/85
[2022-01-16 16:32] VITALS: BP 111/66
[2022-01-16 22:00] VITALS: BP 128/77
[2022-01-16] MEDS: ATORVASTATIN 20 MG TAB PO SCH (22:09)
[2022-01-17 05:00] VITALS: BP 155/87
[2022-01-17] MEDS: SODIUM CHLOR 0.9% PF (SALINE LOCK) 10ML VIAL/SYR IV SCH ×3 (05:07→21:37)
[2022-01-17 09:00] VITALS: BP 151/89
[2022-01-17] MEDS: CEFTRIAXONE SODIUM 2 GM in D5W 5% 50 ML IV SCH (09:18)
[2022-01-17] MEDS: FUROSEMIDE 100 MG/10ML VIAL IV SCH (09:18)
[2022-01-17] MEDS: TACROLIMUS 1 MG CAP PO SCH ×2 (09:19→22:09)
[2022-01-17] MEDS: MULTIPLE VITAMIN TAB PO SCH (09:19)
[2022-01-17] MEDS: ASPirin 81 mg TAB PO SCH (09:19)
[2022-01-17] MEDS: EVEROLIMUS 1 MG PO SCH (09:19)
[2022-01-17] MEDS: METOPROLOL SUCCINATE XL 50 MG TAB PO SCH (09:19)
[2022-01-17] MEDS: GABAPENTIN 300 MG CAP PO SCH ×2 (09:19→21:38)
[2022-01-17 09:52] LABS: Hematocrit 39.5 % (41.0-53.0); Hemoglobin 12.7 g/dL (13.5-17.5); Mean Corpuscular Hgb Conc. 32.1 g/dL (32.0-36.0); Mean Corpuscular Volume 90.4 fL (80.0-100.0); Red Blood Cells 4.37 10^6/uL (4.5-5.90); Red Cell Distribution Width 14.8 % (11.8-14.3); White Blood Cell 6.8 10^3/uL (4.4-10.8)
[2022-01-17] MEDS: FUROSEMIDE 40 MG TAB PO SCH (10:00)
[2022-01-17 10:09] LABS: BUN/Creatinine Ratio 28.4; Calcium 8.5 mg/dL (8.5-10.1); Potassium 3.9 mmol/L (3.5-5.1)
[2022-01-17 10:20] LABS: Blast Cells 0; Metamyelocytes % 0; Myelocytes % 0; Promyelocytes % 0; Reactive Lymphocytes 0
[2022-01-17 13:00] VITALS: BP 130/86
[2022-01-17 15:30] LABS: Band Neutrophils % (manual) 1; Basophils % (manual) 1 (0.0-2.0); Eosinophils % (manual) 3 (0-7); Lymphocytes % (manual) 6 (10.0-50.0); Monocytes % (manual) 5 (0-12)
[2022-01-17 17:22] VITALS: BP 139/81
[2022-01-17] MEDS: ATORVASTATIN 20 MG TAB PO SCH (21:38)
[2022-01-17 22:00] VITALS: BP 126/79
[2022-01-18 05:00] VITALS: BP 153/91
[2022-01-18] MEDS: SODIUM CHLOR 0.9% PF (SALINE LOCK) 10ML VIAL/SYR IV SCH ×3 (05:54→20:38)
[2022-01-18 09:00] VITALS: BP 148/83
[2022-01-18] MEDS ORDERED: cefTRIAXone 1GM/50ML D5W 50 ML IV SCH (09:00)
[2022-01-18] MEDS: EVEROLIMUS 1 MG PO SCH (09:24)
[2022-01-18] MEDS: GABAPENTIN 300 MG CAP PO SCH ×2 (09:25→20:39)
[2022-01-18] MEDS: TACROLIMUS 1 MG CAP PO SCH ×2 (09:25→21:51)
[2022-01-18] MEDS: ASPirin 81 mg TAB PO SCH (09:26)
[2022-01-18] MEDS: FUROSEMIDE 40 MG TAB PO SCH (09:29)
[2022-01-18] MEDS: METOPROLOL SUCCINATE XL 50 MG TAB PO SCH (09:29)
[2022-01-18] MEDS: MULTIPLE VITAMIN TAB PO SCH (09:30)
[2022-01-18] MEDS ORDERED: CEFTRIAXONE SODIUM 2 GM in D5W 5% 50 ML IV SCH (10:00)
[2022-01-18] MEDS ORDERED: cefTRIAXone 1GM/50ML D5W 50 ML IV ONE (10:15)
[2022-01-18 12:58] VITALS: BP 136/77
[2022-01-18 17:00] VITALS: BP 157/93
[2022-01-18] MEDS: ATORVASTATIN 20 MG TAB PO SCH (20:39)
[2022-01-18 22:00] VITALS: BP 132/78
[2022-01-19 05:00] VITALS: BP 160/91
[2022-01-19] MEDS: SODIUM CHLOR 0.9% PF (SALINE LOCK) 10ML VIAL/SYR IV SCH ×3 (05:39→23:04)
[2022-01-19] MEDS: METOPROLOL SUCCINATE XL 50 MG TAB PO SCH (09:24)
[2022-01-19] MEDS: ASPirin 81 mg TAB PO SCH (09:24)
[2022-01-19] MEDS: MULTIPLE VITAMIN TAB PO SCH (09:25)
[2022-01-19] MEDS: GABAPENTIN 300 MG CAP PO SCH ×2 (09:25→23:05)
[2022-01-19] MEDS: FUROSEMIDE 40 MG TAB PO SCH (09:25)
[2022-01-19] MEDS: EVEROLIMUS 1 MG PO SCH (09:28)
[2022-01-19 09:42] VITALS: BP 151/92
[2022-01-19] MEDS ORDERED: FUROSEMIDE 20 MG/2 ML VIAL IV ONE (09:45)
[2022-01-19] MEDS: CEFTRIAXONE SODIUM 2 GM in D5W 5% 50 ML IV SCH (09:57)
[2022-01-19] MEDS: TACROLIMUS 1 MG CAP PO SCH ×2 (09:57→23:17)
[2022-01-19 14:38] VITALS: BP 132/74
[2022-01-19 17:49] VITALS: BP 119/72
[2022-01-19 22:00] VITALS: BP 150/85
[2022-01-19] MEDS: ATORVASTATIN 20 MG TAB PO SCH (23:05)
[2022-01-20 05:00] VITALS: BP 161/95
[2022-01-20] MEDS: SODIUM CHLOR 0.9% PF (SALINE LOCK) 10ML VIAL/SYR IV SCH ×3 (05:29→21:26)
[2022-01-20 08:26] LABS: BUN/Creatinine Ratio 28.7; Calcium 8.8 mg/dL (8.5-10.1); Potassium 4.2 mmol/L (3.5-5.1)
[2022-01-20] MEDS: METOPROLOL SUCCINATE XL 50 MG TAB PO SCH (08:43)
[2022-01-20] MEDS: FUROSEMIDE 40 MG TAB PO SCH (08:44)
[2022-01-20] MEDS: CEFTRIAXONE SODIUM 2 GM in D5W 5% 50 ML IV SCH (08:47)
[2022-01-20] MEDS: TACROLIMUS 1 MG CAP PO SCH ×2 (08:47→21:25)
[2022-01-20] MEDS: ASPirin 81 mg TAB PO SCH (08:53)
[2022-01-20] MEDS: MULTIPLE VITAMIN TAB PO SCH (08:53)
[2022-01-20] MEDS: EVEROLIMUS 1 MG PO SCH (08:54)
[2022-01-20] MEDS: GABAPENTIN 300 MG CAP PO SCH ×2 (08:54→21:26)
[2022-01-20 09:00] VITALS: BP 161/98
[2022-01-20 13:00] VITALS: BP 132/76
[2022-01-20 16:42] VITALS: BP 149/82
[2022-01-20] MEDS: ATORVASTATIN 20 MG TAB PO SCH (21:25)
[2022-01-20 22:00] VITALS: BP 144/81
[2022-01-21 05:00] VITALS: BP 157/91
[2022-01-21] MEDS: SODIUM CHLOR 0.9% PF (SALINE LOCK) 10ML VIAL/SYR IV SCH ×2 (06:10→14:00)
[2022-01-21 06:25] LABS: Basophils # (auto) 0.1 10 ^3/uL (0-0.2); Basophils % (auto) 0.7 % (0.0-2.0); Eosinophils # (auto) 0.1 10 ^3/uL (0-0.8); Eosinophils % (auto) 1.9 % (0.0-7.0); Hematocrit 38.9 % (41.0-53.0); Hemoglobin 12.7 g/dL (13.5-17.5); Lymphocytes # (auto) 0.8 10 ^3/uL (0.4-5.4); Lymphocytes % (auto) 10.9 % (10.0-50.0); Mean Corpuscular Hemoglobin 29.2 pg (28.0-32.0); Mean Corpuscular Hgb Conc. 32.8 g/dL (32.0-36.0); Mean Corpuscular Volume 89.2 fL (80.0-100.0); Monocytes # (auto) 0.7 10 ^3/uL (0-1.3); Monocytes % (auto) 9.5 % (0.0-12.0); Neutrophils # (auto) 5.6 10 ^3/uL (1.6-8.6); Nucleated Red Blood Cells % 0.1 %; Red Blood Cells 4.36 10^6/uL (4.5-5.90); Red Cell Distribution Width 14.7 % (11.8-14.3); White Blood Cell 7.2 10^3/uL (4.4-10.8)
[2022-01-21 09:00] VITALS: BP 147/91
[2022-01-21] MEDS: MULTIPLE VITAMIN TAB PO SCH (09:49)
[2022-01-21] MEDS: FUROSEMIDE 40 MG TAB PO SCH (09:51)
[2022-01-21] MEDS: TACROLIMUS 1 MG CAP PO SCH (09:51)
[2022-01-21] MEDS: ASPirin 81 mg TAB PO SCH (09:51)
[2022-01-21] MEDS: GABAPENTIN 300 MG CAP PO SCH (09:52)
[2022-01-21] MEDS: METOPROLOL SUCCINATE XL 50 MG TAB PO SCH (09:52)
[2022-01-21] MEDS: EVEROLIMUS 1 MG PO SCH (09:54)
[2022-01-21] MEDS: CEFTRIAXONE SODIUM 2 GM in D5W 5% 50 ML IV SCH (09:55)
[2022-01-21 13:00] VITALS: BP 139/86
[2022-01-21 17:00] VITALS: BP 151/88
[2022-01-21 17:27] VITALS: BP 151/88
== END 2022-01-21 18:26 | DRG 871 ==
LOC: EDUNIT# 02:44 → EDBD 02:44 → ER 02:44 → TELE 07:02 → TELE-CENTR 01-12 21:35
PROVIDERS: ADMIT Nurse Practitioner Family; ATTEND Internal Medicine
PROC: 05H933Z Insertion of Infusion Device into Right Brachial Vein, Percutaneous Approach (ICD-10-PCS; principal; 2022-01-14)
PROC: B54MZZA Ultrasonography of Right Upper Extremity Veins, Guidance (ICD-10-PCS; 2022-01-14)
DX: A40.9 Streptococcal sepsis, unspecified (principal); G93.41 Metabolic encephalopathy; J18.9 Pneumonia, unspecified organism; N17.0 Acute kidney failure with tubular necrosis; I21.A1 Myocardial infarction type 2; J96.01 Acute respiratory failure with hypoxia; E44.0 Moderate protein-calorie malnutrition; L03.115 Cellulitis of right lower limb; I13.0 Hypertensive heart and chronic kidney disease with heart failure and stage 1 through stage 4 chronic kidney disease, or unspecified chronic kidney disease; N39.0 Urinary tract infection, site not specified; T86.19 Other complication of kidney transplant; D84.9 Immunodeficiency, unspecified; Z94.1 Heart transplant status; D64.9 Anemia, unspecified; D69.6 Thrombocytopenia, unspecified; E66.9 Obesity, unspecified; E87.6 Hypokalemia; G89.29 Other chronic pain; I50.9 Heart failure, unspecified; I73.9 Peripheral vascular disease, unspecified; N18.9 Chronic kidney disease, unspecified; K59.00 Constipation, unspecified; G62.9 Polyneuropathy, unspecified; B95.2 Enterococcus as the cause of diseases classified elsewhere; I49.3 Ventricular premature depolarization; I95.9 Hypotension, unspecified; T14.8XXA Other injury of unspecified body region, initial encounter; X58.XXXA Exposure to other specified factors, initial encounter; Y83.0 Surgical operation with transplant of whole organ as the cause of abnormal reaction of the patient, or of later complication, without mention of misadventure at the time of the procedure; Z95.1 Presence of aortocoronary bypass graft; Z68.31 Body mass index [BMI] 31.0-31.9, adult; Y92.89 Other specified places as the place of occurrence of the external cause; Y93.89 Activity, other specified; Y99.8 Other external cause status; Z85.828 Personal history of other malignant neoplasm of skin; Z86.73 Personal history of transient ischemic attack (TIA), and cerebral infarction without residual deficits
CPT/HCPCS: 36415; 70450; 71045; 80048; 80053; 80069; 80197; 80202; 81001; 82565; 83605; 83735; 83880; 84484; 85007; 85025; 85027; 85610; 85730; 87040; 87077; 87081; 87186; 93005; 93306; 93925; 93926; 93970; 96365; 97110; 97116; 97163; 97530; 99291; G0378; J0696; J7060; J7507

== ENCOUNTER 2023-03-06 09:42 | Emergency (ER) | payer MEDICARE, OTHER ==
[~2023-03-06] VITALS: Ht 177.8 cm; Wt 105.9 kg
[~2023-03-06 09:42] MED LIST changes: -ENAL10TA12 PO; +ENAL1TAB46 PO; +NAPR-746 PO; -NAPR500T31 PO
[2023-03-06 10:20] VITALS: PULSE 70; RESP 13; TEMP 97.7; O2SAT 97
[2023-03-06 11:00] LABS: INR 1.13 (0.9-1.15); Partial Thromboplastin Time 27.3 SEC (24.5-34.5); Prothrombin Time 11.8 sec (9.3-11.8)
[2023-03-06 11:01] LABS: Alanine Aminotransferase 25 U/L (7-40); Albumin 4.2 g/dL (3.2-4.8); Alkaline Phosphatase 124 U/L (46-116); Anion Gap 5 (5-15); Aspartate Aminotransferase 26 U/L (13-40); BUN/Creatinine Ratio 14.3 (10.0-20.0); Bilirubin, Total 0.8 mg/dL (0.2-1.0); Blood Urea Nitrogen 28 mg/dL (9-23); Calcium 9.3 mg/dL (8.7-10.4); Carbon Dioxide 26 mmol/L (20-30); Chloride 111 mmol/L (98-107); Glucose 150 mg/dL (74-106); Sodium 142 mmol/L (136-145); Total Protein 7.2 g/dL (5.7-8.2)
[2023-03-06 11:49] LABS: Basophils # (auto) 0 10 ^3/uL (0-0.2); Basophils % (auto) 0.7 % (0.0-2.0); Eosinophils # (auto) 0.1 10 ^3/uL (0-0.8); Eosinophils % (auto) 2.5 % (0.0-7.0); Hematocrit 51.5 % (41.0-53.0); Hemoglobin 16.8 g/dL (13.5-17.5); Lymphocytes # (auto) 0.7 10 ^3/uL (0.4-5.4); Lymphocytes % (auto) 12.7 % (10.0-50.0); Mean Corpuscular Hemoglobin 30.1 pg (28.0-32.0); Mean Corpuscular Hgb Conc. 32.6 g/dL (32.0-36.0); Mean Corpuscular Volume 92.2 fL (80.0-100.0); Monocytes # (auto) 0.6 10 ^3/uL (0-1.3); Monocytes % (auto) 10.4 % (0.0-12.0); Neutrophils # (auto) 4.3 10 ^3/uL (1.6-8.6); Neutrophils % (auto) 73.7 % (37.0-80.0); Nucleated Red Blood Cells % 0.1 %; Red Blood Cells 5.58 10^6/uL (4.5-5.90); Red Cell Distribution Width 15.7 % (11.8-14.3); White Blood Cell 5.9 10^3/uL (4.4-10.8)
[2023-03-06] MEDS ORDERED: FUROSEMIDE 20 MG TAB PO ONE (13:00)
[2023-03-06 15:00] VITALS: BP 160/90; PULSE 90; RESP 20; O2SAT 94
[2023-03-06] MEDS ORDERED: BACDST PO (15:04)
[2023-03-06 15:20] LABS: Urine Bacteria NONE SEEN /hpf (None Seen); Urine Blood 1+ /uL (Negative); Urine Clarity Clear (Clear); Urine Color Colorless (Yellow); Urine Protein, UAD TRACE (Negative); Urine Specific Gravity 1.016 (1.001-1.035); Urine Urobilinogen Normal (Negative); Urine WBC <1 /hpf (0 - 3); Urine pH 5.5 (5.0-8.0)
== END 2023-03-06 15:50 | disposition home or self-care (01) ==
LOC: ER 09:42
DX: R60.0 Localized edema (principal); L03.116 Cellulitis of left lower limb; L03.115 Cellulitis of right lower limb; I11.0 Hypertensive heart disease with heart failure; I50.9 Heart failure, unspecified; E78.5 Hyperlipidemia, unspecified; Z86.73 Personal history of transient ischemic attack (TIA), and cerebral infarction without residual deficits
CPT/HCPCS: 36415; 71045; 80053; 81001; 83605; 83880; 84484; 85025; 85379; 85610; 85730; 87040; 93005; 93970